=== PATIENT | female | born 1975 | race Two or more races ===

== ENCOUNTER 2019-06-21 11:30 | Inpatient (IN) | payer OTHER ==
[~2019-06-21] VITALS: Ht 160 cm; Wt 70.3 kg
[2019-06-21] MEDS ORDERED: IV NORMAL SALINE 1000ML BAG 1,000 ML IV SCH (12:01)
--- NOTE | 2019-06-21 12:04 | PHYS DOC ---
Adult General Chief Complaint Chief Complaint: ABDOMINAL PAIN HPI HPI Patient is a 44 year old female who presents with his morning awoke with mid epigastric abdominal pain and vomiting. Patient states she vomited 5 times but there is no blood in her vomit. Patient states that her mid back is also hurting. When patient asked what her mid back pain feels like she states that she cannot describe it doesn't know what it feels like. When asked what her abdominal pain feels like she states "it just feels like there something hard sitting in there". Patient rates her pain a 7 out of 10. Review of Systems Review of Systems Constitutional: Denies fever or chills [] Eyes: Denies change in visual acuity, redness, or eye pain [] HENT: Denies nasal congestion or sore throat [] Respiratory: Denies cough or shortness of breath [] Cardiovascular: No additional information not addressed in HPI [] GI: abdominal pain, nausea, vomiting, denies bloody stools or diarrhea [] : Denies dysuria or hematuria [] Musculoskeletal: Denies back pain or joint pain [] Integument: Denies rash or skin lesions [] Neurologic: Denies headache, focal weakness or sensory changes [] Endocrine: Denies polyuria or polydipsia [] All other systems were reviewed and found to be within normal limits, except as documented in this note. Current Medications Current Medications Current Medications Medications (Trade) Dose Ordered Sig/Ro Start Time Stop Time Status Last Admin Dose Admin Acetaminophen (Tylenol) 650 mg PRN Q4HRS PRN 06/21/19 13:45 06/22/19 13:44 Ceftriaxone Sodium (Rocephin) 1 gm 1X ONCE 06/21/19 13:45 06/21/19 13:46 DC 06/21/19 13:38 1 GM Famotidine (Pepcid Vial) 20 mg 1X ONCE 06/21/19 12:15 06/21/19 12:16 DC 06/21/19 12:19 20 MG Fentanyl Citrate (Fentanyl 2ml Vial) 50 mcg PRN Q1HR PRN 06/21/19 13:45 06/22/19 13:44 Ondansetron HCl (Zofran) 4 mg PRN Q8HRS PRN 06/21/19 13:45 06/22/19 13:44 Sodium Chloride 1,000 ml @ 100 mls/hr Q10H 06/21/19 13:35 06/22/19 13:34 Allergies Allergies Allergies Coded Allergies Type Severity Reaction Last Updated Verified No Known Drug Allergies 05/28/19 No Physical Exam Physical Exam Constitutional: Well developed, well nourished, no acute distress, non-toxic appearance. [] HENT: Normocephalic, atraumatic, bilateral external ears normal, oropharynx moist, no oral exudates, nose normal. [] Eyes: PERRLA, EOMI, conjunctiva normal, no discharge. [] Neck: Normal range of motion, no tenderness, supple, no stridor. [] Cardiovascular:Heart rate regular rhythm, no murmur [] Lungs & Thorax: Bilateral breath sounds clear to auscultation [] Abdomen: Bowel sounds normal, soft, epigastric tenderness, no masses, no pulsatile masses. [] Skin: Lower abdomen surgical site is healed and no signs of infection. Warm, dry, no erythema, no rash. [] Back: No tenderness, no CVA tenderness. [] Extremities: No tenderness, no cyanosis, no clubbing, ROM intact, no edema. [] Neurologic: Alert and oriented X 3, normal motor function, normal sensory function, no focal deficits noted. [] Psychologic: Affect normal, judgement normal, mood normal. [] Current Patient Data Vital Signs Vital Signs Date Time Temp Pulse Resp B/P (MAP) Pulse Ox O2 Delivery O2 Flow Rate FiO2 06/21/19 13:08 66 16 121/60 (80) 95 Room Air 06/21/19 11:52 98.0 98.0 Lab Values Laboratory Tests Test 06/21/19 11:50 06/21/19 12:10 Urine Collection Type Unknown Urine Color Yellow Urine Clarity Clear Urine pH 6.5 Urine Specific [place] 1.010 Urine Protein 30 mg/dL (NEG-TRACE) Urine Glucose (UA) Negative mg/dL (NEG) Urine Ketones (Stick) Negative mg/dL (NEG) Urine Blood Trace (NEG) Urine Nitrite Negative (NEG) Urine Bilirubin Negative (NEG) Urine Urobilinogen Dipstick 0.2 mg/dL (0.2 mg/dL) Urine Leukocyte Esterase Large (NEG) Urine RBC 3-5 /HPF (0-2) Urine WBC 11-20 /HPF (0-4) Urine Squamous Epithelial Cells Many /LPF Urine Bacteria Moderate /HPF (0-FEW) Urine Mucus Slight /LPF Urine Opiates Screen Neg (NEG) Urine Methadone Screen Neg (NEG) Urine Barbiturates Neg (NEG) Urine Phencyclidine Screen Neg (NEG) Urine Amphetamine/Methamphetamine Neg (NEG) Urine Benzodiazepines Screen Neg (NEG) Urine Cocaine Screen Neg (NEG) Urine Cannabinoids Screen Neg (NEG) Urine Ethyl Alcohol Neg (NEG) White Blood Count 15.8 x10^3/uL (4.0-11.0) H Red Blood Count 4.04 x10^6/uL (3.50-5.40) Hemoglobin 11.8 g/dL (12.0-15.5) L Hematocrit 35.3 % (36.0-47.0) L Mean Corpuscular Volume 87 fL (79-100) Mean Corpuscular Hemoglobin 29 pg (25-35) Mean Corpuscular Hemoglobin Concent 34 g/dL (31-37) Red Cell Distribution Width 14.3 % (11.5-14.5) Platelet Count 401 x10^3/uL (140-400) H Neutrophils (%) (Auto) 94 % (31-73) H Lymphocytes (%) (Auto) 3 % (24-48) L Monocytes (%) (Auto) 2 % (0-9) Eosinophils (%) (Auto) 0 % (0-3) Basophils (%) (Auto) 0 % (0-3) Neutrophils # (Auto) 14.9 x10^3/uL (1.8-7.7) H Lymphocytes # (Auto) 0.5 x10^3/uL (1.0-4.8) L Monocytes # (Auto) 0.3 x10^3/uL (0.0-1.1) Eosinophils # (Auto) 0.0 x10^3/uL (0.0-0.7) Basophils # (Auto) 0.0 x10^3/uL (0.0-0.2) Segmented Neutrophils % 89 % (35-66) H Band Neutrophils % 7 % (0-9) Lymphocytes % 2 % (24-48) L Monocytes % 2 % (0-10) Platelet Estimate Increased (ADEQUATE) Sodium Level 144 mmol/L (136-145) Potassium Level 4.1 mmol/L (3.5-5.1) Chloride Level 105 mmol/L (98-107) Carbon Dioxide Level 25 mmol/L (21-32) Anion Gap 14 (6-14) Blood Urea Nitrogen 24 mg/dL (7-20) H Creatinine 2.0 mg/dL (0.6-1.0) H Estimated GFR (Cockcroft-Gault) 26.9 BUN/Creatinine Ratio 12 (6-20) Glucose Level 114 mg/dL (70-99) H Lactic Acid Level 2.4 mmol/L (0.4-2.0) H Calcium Level 10.0 mg/dL (8.5-10.1) Total Bilirubin 0.3 mg/dL (0.2-1.0) Aspartate Amino Transferase (AST) 29 U/L (15-37) Alanine Aminotransferase (ALT) 37 U/L (14-59) Alkaline Phosphatase 68 U/L (46-116) Total Protein 7.9 g/dL (6.4-8.2) Albumin 3.9 g/dL (3.4-5.0) Albumin/Globulin Ratio 1.0 (1.0-1.7) Lipase 105 U/L (73-393) Laboratory Tests 06/21/19 12:10 Laboratory Tests 06/21/19 12:10 EKG EKG [] Radiology/Procedures Radiology/Procedures [] Impressions: [facility] [address] [place], [place] [id number] IMAGING REPORT Signed PATIENT: YESSY WEBER ACCOUNT: [id number] : 1975 LOCATION: ER AGE: 44 SEX: F EXAM STATUS: REG ER ORD. PHYSICIAN: NASRIN LEWIS APRN REASON: abd pain, vomiting PROCEDURE: CT ABDOMEN PELVIS WO CONTRAST EXAM: CT Abdomen and Pelvis without IV contrast CLINICAL HISTORY: Abdominal pain, vomiting. COMPARISON: none TECHNIQUE: Helical CT of the abdomen and pelvis without intravenous contrast. Axial, coronal and sagittal reformatted images were generated. PQRS compliance statement - One or more of the following individualized dose reduction techniques were utilized for this study: 1. Automated exposure control 2. Adjustment of the mA and/or kV according to patient size 3. Use of iterative reconstruction technique FINDINGS: Lack of intravenous contrast limits evaluation of solid organs, vasculature, and lymph nodes. Lower chest: Linear opacities in lower lobes likely scarring/atelectasis. Abdomen and Pelvis: No focal liver lesion. Spleen is unremarkable. Adrenal glands are normal. Pancreas is unremarkable. Gallbladder is normal. No biliary ductal dilatation. The kidneys are enlarged bilaterally with associated perinephric fat infiltration. This may be seen with pyelonephritis. No renal tract calculus. No hydronephrosis or hydroureter. Bladder is unremarkable. Large volume colonic stool content is seen. No small or large bowel dilatation. No evidence for bowel obstruction. Appendix is normal. No abdominal or pelvic ascites. No abdominal or pelvic lymphadenopathy. Bones: Sclerotic lesion T10 vertebral body, nonspecific possibly bone island. IMPRESSION: Diffuse bilateral perinephric infiltration with edematous appearance of the kidneys may be seen with pyelonephritis. Electronically signed by: Delroy Birmingham MD (06/21/2019 1:17 PM) [facility] DICTATED and SIGNED BY: DELROY BIRMINGHAM MD DATE: 06/21/19 5639 Course & Med Decision Making Course & Med Decision Making Patient is a 44 year old female who presents with his morning awoke with mid ep igastric abdominal pain and vomiting. Patient states she vomited 5 times but there is no blood in her vomit. Patient states that her mid back is also hurting. When patient asked what her mid back pain feels like she states that she cannot describe it doesn't know what it feels like. When asked what her abdominal pain feels like she states "it just feels like there something hard sitting in there". Patient rates her pain a 7 out of 10. Patient states she is not taking any medications today. Patient states she does not take any medications daily. Patient had a total hysterectomy by Dr. Caro on May 28. Hysterectomy surgical site is healed and there are no signs of infection. Abdomen is tender with palpation to epigastric area but otherwise soft. No external swelling. Lungs are clear to auscultation all lobes. Afebrile and vital signs are stable. Patient denies vaginal discharge, constipation, diarrhea, chest pain, shortness of air, fever, dysuria, weaknesses, dizziness, visual changes. Ambulatory with a steady gait. Speaks in full clear sentences. Mucous membranes are moist. Skin is pink warm and dry. Alert and oriented. Patient has a urinary tract infection with trace hematuria, white blood cell count 15.8, BUN 24, creatinine 2.0. She does not have a history of kidney problems. CT abdomen pelvis shows Diffuse bilateral perinephric infiltration with edematous appearance of the kidneys may be seen with pyelonephritis. Patient admitted for pyelonephritis by Dr. Vázquez. Yunier Disclaimer Jobyon Disclaimer This electronic medical record was generated, in whole or in part, using a voice recognition dictation system. Departure Departure Impression: Primary Impression: Pyelonephritis Disposition: ADMITTED INPATIENT Admitting Physician: TRINY Condition: STABLE Referrals: ROHAN CARO MD (PCP) NASRIN LEWIS [employer] Jun 21, 2019 12:04
[2019-06-21 12:11] LABS: BILIRUBIN,URINE NEGATIVE (NEG); CLARITY,URINE CLEAR; COLOR,URINE YELLOW; NITRITE,URINE NEGATIVE (NEG); PH,URINE 6.5; PROTEIN,URINE 30 mg/dL (NEG-TRACE); UROBILINOGEN,URINE 0.2 mg/dL (0.2 mg/dL)
[2019-06-21] MEDS ORDERED: ONDANSETRON PF 4 MG/2 ML VIAL. IV ONE (12:15)
[2019-06-21] MEDS ORDERED: fentaNYL PF VIAL 100 MCG/2 ML VIAL IV ONE (12:15)
[2019-06-21] MEDS ORDERED: FAMOTIDINE 20 MG/2 ML VIAL IVP ONE (12:15)
[2019-06-21 12:19] LABS: BARBITURATES NEG (NEG); BENZODIAZEPINES NEG (NEG); CANNABINOIDS NEG (NEG); COCAINE NEG (NEG); METHADONE NEG (NEG); OPIATES NEG (NEG); PHENCYCLIDINE NEG (NEG)
[2019-06-21 12:20] LABS: AMPHETAMINE/METHAMPHETAMINE NEG (NEG)
[2019-06-21 12:27] LABS: SQUAMOUS EPITHELIAL CELL,UR MANY /LPF
[2019-06-21 12:28] LABS: BACTERIA,URINE MODERATE /HPF (0-FEW)
[2019-06-21 12:33] LABS: BASO % 0 % (0-3); EOS % 0 % (0-3); HEMATOCRIT 35.3 % (36.0-47.0); HEMOGLOBIN 11.8 g/dL (12.0-15.5); LYMPH # 0.5 x10^3/uL (1.0-4.8); LYMPH % 3 % (24-48); MEAN CORPUSCULAR HEMOGLOBIN 29 pg (25-35); MEAN CORPUSCULAR HGB CONC 34 g/dL (31-37); MEAN CORPUSCULAR VOLUME 87 fL (79-100); MONO # 0.3 x10^3/uL (0.0-1.1); MONO % 2 % (0-9); NEUT # 14.9 x10^3/uL (1.8-7.7); NEUT % 94 % (31-73); PLATELET COUNT 401 x10^3/uL (140-400); RED BLOOD COUNT 4.04 x10^6/uL (3.50-5.40); RED CELL DISTRIBUTION WIDTH 14.3 % (11.5-14.5); WHITE BLOOD COUNT 15.8 x10^3/uL (4.0-11.0)
[2019-06-21 12:41] LABS: GFR 26.9; POTASSIUM 4.1 mmol/L (3.5-5.1)
[2019-06-21 12:49] LABS: ALBUMIN 3.9 g/dL (3.4-5.0); TOTAL BILIRUBIN 0.3 mg/dL (0.2-1.0); TOTAL PROTEIN 7.9 g/dL (6.4-8.2)
[2019-06-21 12:58] LABS: % LYMPHS 2 % (24-48); % MONOS 2 % (0-10)
[2019-06-21 12:59] LABS: % BANDS 7 % (0-9); % SEGS 89 % (35-66)
[2019-06-21 13:00] LABS: PLT ESTIMATE INCREASED (ADEQUATE)
[2019-06-21] MEDS ORDERED: IV NORMAL SALINE 1000ML BAG 1,000 ML IV ONE (13:00)
--- NOTE | 2019-06-21 13:20 | RAD ---
EXAM: CT Abdomen and Pelvis without IV contrast CLINICAL HISTORY: Abdominal pain, vomiting. COMPARISON: none TECHNIQUE: Helical CT of the abdomen and pelvis without intravenous contrast. Axial, coronal and sagittal reformatted images were generated. PQRS compliance statement - One or more of the following individualized dose reduction techniques were utilized for this study: 1. Automated exposure control 2. Adjustment of the mA and/or kV according to patient size 3. Use of iterative reconstruction technique FINDINGS: Lack of intravenous contrast limits evaluation of solid organs, vasculature, and lymph nodes. Lower chest: Linear opacities in lower lobes likely scarring/atelectasis. Abdomen and Pelvis: No focal liver lesion. Spleen is unremarkable. Adrenal glands are normal. Pancreas is unremarkable. Gallbladder is normal. No biliary ductal dilatation. The kidneys are enlarged bilaterally with associated perinephric fat infiltration. This may be seen with pyelonephritis. No renal tract calculus. No hydronephrosis or hydroureter. Bladder is unremarkable. Large volume colonic stool content is seen. No small or large bowel dilatation. No evidence for bowel obstruction. Appendix is normal. No abdominal or pelvic ascites. No abdominal or pelvic lymphadenopathy. Bones: Sclerotic lesion T10 vertebral body, nonspecific possibly bone island. IMPRESSION: Diffuse bilateral perinephric infiltration with edematous appearance of the kidneys may be seen with pyelonephritis. Electronically signed by: Delroy Cm MD (06/21/2019 1:17 PM) [facility]
[2019-06-21] MEDS ORDERED: ACETAMINOPHEN 325 MG TABLET. PO PRN (13:45)
[2019-06-21] MEDS ORDERED: cefTRIAXone IV Push 1 GM VIAL. IVP ONE (13:45)
[2019-06-21] MEDS ORDERED: ONDANSETRON PF 4 MG/2 ML VIAL. IV PRN (13:45)
[2019-06-21] MEDS: fentaNYL PF VIAL 100 MCG/2 ML VIAL IV PRN ×2 (14:00→19:52)
[2019-06-21 14:51] VITALS: BP 131/78
[2019-06-21] MEDS ORDERED: IBUP200T44 PO (15:26)
[2019-06-21] MEDS ORDERED: OXYC1TAB15 PO (15:26)
[2019-06-21] MEDS ORDERED: PIP/TAZO PER PHARMACY MC PRN (15:45)
[2019-06-21] MEDS ORDERED: MORPHINE SULFATE 2 MG/ML VIAL. IV PRN (15:45)
[2019-06-21] MEDS: IV NORMAL SALINE 1000ML BAG 1,000 ML IV SCH ×2 (15:58→23:35)
[2019-06-21] MEDS: PROCHLORPERAZINE 10 MG/2 ML VIAL. IV PRN (15:58)
[2019-06-21] MEDS: PIPERACILLIN/TAZOBACTAM 2.25 GM in IV NORMAL SALINE 50ML 50 ML IV SCH (17:38)
[2019-06-21 19:07] VITALS: BP 106/60
--- NOTE | 2019-06-21 21:57 | HP ---
ADMIT DATE: 06/21/2019 CHIEF COMPLAINT: Abdominal pain. HISTORY OF PRESENT ILLNESS: The patient is a pleasant 44-year-old female who presented to the ER with abdominal pain, rates it a 7/10. She has associated nausea. We did some labs and appear her urine is showing a UTI. She has a large amount of leukocyte esterase and 11-20 white cells. She also has a white count of 16,000. We are going to admit the patient and give her IV antibiotics and fluids. It should be noted that she had hysterectomy a few weeks ago by Dr. Caro. We are also going to consult him for routine followup. PAST MEDICAL HISTORY: Recent hysterectomy. ALLERGIES: None. FAMILY HISTORY: Hypertension. SOCIAL HISTORY: She does not drink, smoke or take drugs. She is to her Jack for many years. MEDICATIONS: Reviewed, please refer to the MRAD. REVIEW OF SYSTEMS: GENERAL: No history of weight change, weakness or fevers. SKIN: No bruising, hair changes or rashes. EYES: No blurred, double or loss of vision. NOSE AND THROAT: No history of nosebleeds, hoarseness or sore throat. HEART: No history of palpitations, chest pain or shortness of breath on exertion. LUNGS: Denies cough, hemoptysis, wheezing or shortness of breath. GASTROINTESTINAL: She complains of abdominal pain. GENITOURINARY: No history of frequency, urgency, hesitancy or nocturia. NEUROLOGIC: Denies history of numbness, tingling, tremor or weakness. PSYCHIATRIC: No history of panic, anxiety or depression. ENDOCRINE: No history of heat or cold intolerance, polyuria or polydipsia. EXTREMITIES: Denies muscle weakness, joint pain, pain on walking or stiffness. PHYSICAL EXAMINATION: VITALS: Within normal limits and are stable. GENERAL: No apparent distress. Alert and oriented. HEENT: Head is normocephalic, atraumatic, pupils were equally round and reactive to light and accommodation. NECK: Supple, no JVD, no thyromegaly was noted. LUNGS: Clear to auscultation in all lung balderas without rhonchi or wheezing. HEART: RRR, S1, S2 present. Peripheral pulses intact, no obvious murmurs were noted. ABDOMEN: Soft, nontender. Positive bowel sounds no organomegaly, normal bowel sounds. EXTREMITIES: Without any cyanosis, clubbing, or edema. Pedal pulses intact, Homans sign is negative. NEUROLOGIC: Normal speech, normal tone. A & O x3, moves all extremities, no obvious focal deficits. PSYCHIATRIC: Normal affect, normal mood. Stable. SKIN: No ulcerations or rashes, good skin turgor, no jaundice. VASCULAR: Good capillary refill, neurovascular bundle appears to be intact. LABORATORY DATA: White count is 16. ASSESSMENT AND PLAN: Urinary tract infection with probable pyelonephritis azotemia and dehydration in a middle-aged female who also had a recent hysterectomy. The patient has been admitted. We will give her IV fluids, IV antibiotics. Consult Nephrology. Consult COMMERCIAL PHOTOGRAPHER. Check a sed rate because she complains of shoulder and hip pain. Frequent labs, PT, OT. Full code. Deep venous thrombosis prophylaxis. ROSALINDA DAWSON DO DR: BIBIANA/jose JOB#: [id number] / [id number]
[2019-06-21 22:45] VITALS: BP 106/60
[2019-06-22] MEDS: IV NORMAL SALINE 1000ML BAG 1,000 ML IV SCH ×3 (01:27→18:15)
[2019-06-22] MEDS: PIPERACILLIN/TAZOBACTAM 2.25 GM in IV NORMAL SALINE 50ML 50 ML IV SCH ×5 (01:27→23:42)
[2019-06-22 03:27] VITALS: BP 103/54
[2019-06-22 07:00] VITALS: BP 116/57
--- NOTE | 2019-06-22 10:45 | PDOC ---
PROGRESS NOTES Chief Complaint Chief Complaint Urinary tract infection pyelonephritis azotemia acute renal failure, vasomotor History of Present Illness History of Present Illness some nausea, has poor PO intake, start clears, advance as able on zosyn, feels much better Vitals Vitals Vital Signs Date Time Temp Pulse Resp B/P (MAP) Pulse Ox O2 Delivery O2 Flow Rate FiO2 06/22/19 07:52 Room Air 06/22/19 07:00 97.3 56 16 116/57 (76) 99 97.3 Physical Exam General: Alert, Oriented X3, Cooperative, No acute distress Heart: Normal S1 Lungs: Clear Abdomen: Normal bowel sounds Extremities: No clubbing Labs LABS Laboratory Tests Test 06/21/19 11:50 06/21/19 12:10 06/21/19 19:00 06/22/19 04:00 Urine Collection Type Unknown Urine Color Yellow Urine Clarity Clear Urine pH 6.5 Urine Specific [place] 1.010 Urine Protein 30 mg/dL (NEG-TRACE) Urine Glucose (UA) Negative mg/dL (NEG) Urine Ketones (Stick) Negative mg/dL (NEG) Urine Blood Trace (NEG) Urine Nitrite Negative (NEG) Urine Bilirubin Negative (NEG) Urine Urobilinogen Dipstick 0.2 mg/dL (0.2 mg/dL) Urine Leukocyte Esterase Large (NEG) Urine RBC 3-5 /HPF (0-2) Urine WBC 11-20 /HPF (0-4) Urine Squamous Epithelial Cells Many /LPF Urine Bacteria Moderate /HPF (0-FEW) Urine Mucus Slight /LPF Urine Opiates Screen Neg (NEG) Urine Methadone Screen Neg (NEG) Urine Barbiturates Neg (NEG) Urine Phencyclidine Screen Neg (NEG) Urine Amphetamine/Methamphetamine Neg (NEG) Urine Benzodiazepines Screen Neg (NEG) Urine Cocaine Screen Neg (NEG) Urine Cannabinoids Screen Neg (NEG) Urine Ethyl Alcohol Neg (NEG) White Blood Count 15.8 x10^3/uL (4.0-11.0) Red Blood Count 4.04 x10^6/uL (3.50-5.40) Hemoglobin 11.8 g/dL (12.0-15.5) Hematocrit 35.3 % (36.0-47.0) Mean Corpuscular Volume 87 fL (79-100) Mean Corpuscular Hemoglobin 29 pg (25-35) Mean Corpuscular Hemoglobin Concent 34 g/dL (31-37) Red Cell Distribution Width 14.3 % (11.5-14.5) Platelet Count 401 x10^3/uL (140-400) Neutrophils (%) (Auto) 94 % (31-73) Lymphocytes (%) (Auto) 3 % (24-48) Monocytes (%) (Auto) 2 % (0-9) Eosinophils (%) (Auto) 0 % (0-3) Basophils (%) (Auto) 0 % (0-3) Neutrophils # (Auto) 14.9 x10^3/uL (1.8-7.7) Lymphocytes # (Auto) 0.5 x10^3/uL (1.0-4.8) Monocytes # (Auto) 0.3 x10^3/uL (0.0-1.1) Eosinophils # (Auto) 0.0 x10^3/uL (0.0-0.7) Basophils # (Auto) 0.0 x10^3/uL (0.0-0.2) Segmented Neutrophils % 89 % (35-66) Band Neutrophils % 7 % (0-9) Lymphocytes % 2 % (24-48) Monocytes % 2 % (0-10) Platelet Estimate Increased (ADEQUATE) Sodium Level 144 mmol/L (136-145) Potassium Level 4.1 mmol/L (3.5-5.1) Chloride Level 105 mmol/L (98-107) Carbon Dioxide Level 25 mmol/L (21-32) Anion Gap 14 (6-14) Blood Urea Nitrogen 24 mg/dL (7-20) Creatinine 2.0 mg/dL (0.6-1.0) Estimated GFR (Cockcroft-Gault) 26.9 BUN/Creatinine Ratio 12 (6-20) Glucose Level 114 mg/dL (70-99) Lactic Acid Level 2.4 mmol/L (0.4-2.0) 1.3 mmol/L (0.4-2.0) Calcium Level 10.0 mg/dL (8.5-10.1) Total Bilirubin 0.3 mg/dL (0.2-1.0) Aspartate Amino Transf (AST/SGOT) 29 U/L (15-37) Alanine Aminotransferase (ALT/SGPT) 37 U/L (14-59) Alkaline Phosphatase 68 U/L (46-116) Total Protein 7.9 g/dL (6.4-8.2) Albumin 3.9 g/dL (3.4-5.0) Albumin/Globulin Ratio 1.0 (1.0-1.7) Lipase 105 U/L (73-393) Erythrocyte Sedimentation Rate 26 (0-25) Assessment and Plan Assessmemt and Plan Problems Medical Problems: (1) Pyelonephritis Status: Acute Comment Review of Relevant I have reviewed the following items ailyn (where applicable) has been applied. Labs Laboratory Tests Test 06/21/19 11:50 06/21/19 12:10 06/21/19 19:00 06/22/19 04:00 Urine Collection Type Unknown Urine Color Yellow Urine Clarity Clear Urine pH 6.5 Urine Specific [place] 1.010 Urine Protein 30 mg/dL (NEG-TRACE) Urine Glucose (UA) Negative mg/dL (NEG) Urine Ketones (Stick) Negative mg/dL (NEG) Urine Blood Trace (NEG) Urine Nitrite Negative (NEG) Urine Bilirubin Negative (NEG) Urine Urobilinogen Dipstick 0.2 mg/dL (0.2 mg/dL) Urine Leukocyte Esterase Large (NEG) Urine RBC 3-5 /HPF (0-2) Urine WBC 11-20 /HPF (0-4) Urine Squamous Epithelial Cells Many /LPF Urine Bacteria Moderate /HPF (0-FEW) Urine Mucus Slight /LPF Urine Opiates Screen Neg (NEG) Urine Methadone Screen Neg (NEG) Urine Barbiturates Neg (NEG) Urine Phencyclidine Screen Neg (NEG) Urine Amphetamine/Methamphetamine Neg (NEG) Urine Benzodiazepines Screen Neg (NEG) Urine Cocaine Screen Neg (NEG) Urine Cannabinoids Screen Neg (NEG) Urine Ethyl Alcohol Neg (NEG) White Blood Count 15.8 x10^3/uL (4.0-11.0) Red Blood Count 4.04 x10^6/uL (3.50-5.40) Hemoglobin 11.8 g/dL (12.0-15.5) Hematocrit 35.3 % (36.0-47.0) Mean Corpuscular Volume 87 fL (79-100) Mean Corpuscular Hemoglobin 29 pg (25-35) Mean Corpuscular Hemoglobin Concent 34 g/dL (31-37) Red Cell Distribution Width 14.3 % (11.5-14.5) Platelet Count 401 x10^3/uL (140-400) Neutrophils (%) (Auto) 94 % (31-73) Lymphocytes (%) (Auto) 3 % (24-48) Monocytes (%) (Auto) 2 % (0-9) Eosinophils (%) (Auto) 0 % (0-3) Basophils (%) (Auto) 0 % (0-3) Neutrophils # (Auto) 14.9 x10^3/uL (1.8-7.7) Lymphocytes # (Auto) 0.5 x10^3/uL (1.0-4.8) Monocytes # (Auto) 0.3 x10^3/uL (0.0-1.1) Eosinophils # (Auto) 0.0 x10^3/uL (0.0-0.7) Basophils # (Auto) 0.0 x10^3/uL (0.0-0.2) Segmented Neutrophils % 89 % (35-66) Band Neutrophils % 7 % (0-9) Lymphocytes % 2 % (24-48) Monocytes % 2 % (0-10) Platelet Estimate Increased (ADEQUATE) Sodium Level 144 mmol/L (136-145) Potassium Level 4.1 mmol/L (3.5-5.1) Chloride Level 105 mmol/L (98-107) Carbon Dioxide Level 25 mmol/L (21-32) Anion Gap 14 (6-14) Blood Urea Nitrogen 24 mg/dL (7-20) Creatinine 2.0 mg/dL (0.6-1.0) Estimated GFR (Cockcroft-Gault) 26.9 BUN/Creatinine Ratio 12 (6-20) Glucose Level 114 mg/dL (70-99) Lactic Acid Level 2.4 mmol/L (0.4-2.0) 1.3 mmol/L (0.4-2.0) Calcium Level 10.0 mg/dL (8.5-10.1) Total Bilirubin 0.3 mg/dL (0.2-1.0) Aspartate Amino Transf (AST/SGOT) 29 U/L (15-37) Alanine Aminotransferase (ALT/SGPT) 37 U/L (14-59) Alkaline Phosphatase 68 U/L (46-116) Total Protein 7.9 g/dL (6.4-8.2) Albumin 3.9 g/dL (3.4-5.0) Albumin/Globulin Ratio 1.0 (1.0-1.7) Lipase 105 U/L (73-393) Erythrocyte Sedimentation Rate 26 (0-25) Laboratory Tests Test 06/21/19 11:50 06/21/19 12:10 06/21/19 19:00 06/22/19 04:00 Urine Collection Type Unknown Urine Color Yellow Urine Clarity Clear Urine pH 6.5 Urine Specific [place] 1.010 Urine Protein 30 mg/dL (NEG-TRACE) Urine Glucose (UA) Negative mg/dL (NEG) Urine Ketones (Stick) Negative mg/dL (NEG) Urine Blood Trace (NEG) Urine Nitrite Negative (NEG) Urine Bilirubin Negative (NEG) Urine Urobilinogen Dipstick 0.2 mg/dL (0.2 mg/dL) Urine Leukocyte Esterase Large (NEG) Urine RBC 3-5 /HPF (0-2) Urine WBC 11-20 /HPF (0-4) Urine Squamous Epithelial Cells Many /LPF Urine Bacteria Moderate /HPF (0-FEW) Urine Mucus Slight /LPF Urine Opiates Screen Neg (NEG) Urine Methadone Screen Neg (NEG) Urine Barbiturates Neg (NEG) Urine Phencyclidine Screen Neg (NEG) Urine Amphetamine/Methamphetamine Neg (NEG) Urine Benzodiazepines Screen Neg (NEG) Urine Cocaine Screen Neg (NEG) Urine Cannabinoids Screen Neg (NEG) Urine Ethyl Alcohol Neg (NEG) White Blood Count 15.8 x10^3/uL (4.0-11.0) Red Blood Count 4.04 x10^6/uL (3.50-5.40) Hemoglobin 11.8 g/dL (12.0-15.5) Hematocrit 35.3 % (36.0-47.0) Mean Corpuscular Volume 87 fL (79-100) Mean Corpuscular Hemoglobin 29 pg (25-35) Mean Corpuscular Hemoglobin Concent 34 g/dL (31-37) Red Cell Distribution Width 14.3 % (11.5-14.5) Platelet Count 401 x10^3/uL (140-400) Neutrophils (%) (Auto) 94 % (31-73) Lymphocytes (%) (Auto) 3 % (24-48) Monocytes (%) (Auto) 2 % (0-9) Eosinophils (%) (Auto) 0 % (0-3) Basophils (%) (Auto) 0 % (0-3) Neutrophils # (Auto) 14.9 x10^3/uL (1.8-7.7) Lymphocytes # (Auto) 0.5 x10^3/uL (1.0-4.8) Monocytes # (Auto) 0.3 x10^3/uL (0.0-1.1) Eosinophils # (Auto) 0.0 x10^3/uL (0.0-0.7) Basophils # (Auto) 0.0 x10^3/uL (0.0-0.2) Segmented Neutrophils % 89 % (35-66) Band Neutrophils % 7 % (0-9) Lymphocytes % 2 % (24-48) Monocytes % 2 % (0-10) Platelet Estimate Increased (ADEQUATE) Sodium Level 144 mmol/L (136-145) Potassium Level 4.1 mmol/L (3.5-5.1) Chloride Level 105 mmol/L (98-107) Carbon Dioxide Level 25 mmol/L (21-32) Anion Gap 14 (6-14) Blood Urea Nitrogen 24 mg/dL (7-20) Creatinine 2.0 mg/dL (0.6-1.0) Estimated GFR (Cockcroft-Gault) 26.9 BUN/Creatinine Ratio 12 (6-20) Glucose Level 114 mg/dL (70-99) Lactic Acid Level 2.4 mmol/L (0.4-2.0) 1.3 mmol/L (0.4-2.0) Calcium Level 10.0 mg/dL (8.5-10.1) Total Bilirubin 0.3 mg/dL (0.2-1.0) Aspartate Amino Transf (AST/SGOT) 29 U/L (15-37) Alanine Aminotransferase (ALT/SGPT) 37 U/L (14-59) Alkaline Phosphatase 68 U/L (46-116) Total Protein 7.9 g/dL (6.4-8.2) Albumin 3.9 g/dL (3.4-5.0) Albumin/Globulin Ratio 1.0 (1.0-1.7) Lipase 105 U/L (73-393) Erythrocyte Sedimentation Rate 26 (0-25) Medications Current Medications Sodium Chloride 1,000 ml @ 1,000 mls/hr Q1H IV Last administered on 06/21/19at 12:19; Start 06/21/19 at 12:01; Stop 06/21/19 at 13:00; Status DC Fentanyl Citrate (Fentanyl 2ml Vial) 50 mcg 1X ONCE IV Last administered on 06/21/19at 12:19; Start 06/21/19 at 12:15; Stop 06/21/19 at 12:16; Status DC Ondansetron HCl (Zofran) 4 mg 1X ONCE IV Last administered on 06/21/19at 12:19; Start 06/21/19 at 12:15; Stop 06/21/19 at 12:16; Status DC Famotidine (Pepcid Vial) 20 mg 1X ONCE IVP Last administered on 06/21/19at 12:19; Start 06/21/19 at 12:15; Stop 06/21/19 at 12:16; Status DC Sodium Chloride 1,000 ml @ 1,000 mls/hr 1X ONCE IV Last administered on 06/21/19at 13:06; Start 06/21/19 at 13:00; Stop 06/21/19 at 13:59; Status DC Ceftriaxone Sodium (Rocephin) 1 gm 1X ONCE IVP Last administered on 06/21/19at 13:38; Start 06/21/19 at 13:45; Stop 06/21/19 at 13:46; Status DC Ondansetron HCl (Zofran) 4 mg PRN Q8HRS PRN IV NAUSEA/VOMITING Last administered on 06/21/19at 14:26; Start 06/21/19 at 13:45; Stop 06/22/19 at 13:44 Fentanyl Citrate (Fentanyl 2ml Vial) 50 mcg PRN Q1HR PRN IV PAIN Last administered on 06/21/19at 19:52; Start 06/21/19 at 13:45; Stop 06/22/19 at 13:44 Sodium Chloride 1,000 ml @ 100 mls/hr Q10H IV Last administered on 06/21/19at 15:58; Start 06/21/19 at 13:35; Stop 06/21/19 at 23:45; Status DC Acetaminophen (Tylenol) 650 mg PRN Q4HRS PRN PO FEVER; Start 06/21/19 at 13:45; Stop 06/22/19 at 13:44 Prochlorperazine Edisylate (Compazine) 10 mg PRN Q6HRS PRN IV NAUSEA/VOMITING Last administered on 06/21/19at 15:58; Start 06/21/19 at 15:45 Morphine Sulfate (Morphine Sulfate) 2 mg PRN Q2HR PRN IV PAIN Last administered on 06/21/19at 16:39; Start 06/21/19 at 15:45 Piperacillin Sod/ Tazobactam Sod (Zosyn Per Pharmacy) 1 each PRN DAILY PRN MC SEE COMMENTS; Start 06/21/19 at 15:45 Piperacillin Sod/ Tazobactam Sod 2.25 gm/Sodium Chloride 50 ml @ 100 mls/hr Q6HRS IV Last administered on 06/22/19at 06:08; Start 06/21/19 at 18:00 Sodium Chloride 1,000 ml @ 125 mls/hr Q8H IV Last administered on 06/22/19at 01:27; Start 06/21/19 at 21:30 Active Scripts Active Reported Motrin Ib (Ibuprofen) 200 Mg Tablet 800 Mg PO BID PRN Percocet 5-325 Mg Tablet (Oxycodone/Acetaminophen) 1 Each Tablet 2 Tab PO PRN Q6HRS PRN Percocet 5-325 Mg Tablet (Oxycodone/Acetaminophen) 1 Each Tablet 1 Tab PO PRN Q6HRS PRN No Known Medications Prior To Admisstion (Info) Each 1 Each MC 1X Vitals/I & O Vital Sign - Last 24 Hours 06/21/19 06/21/19 06/21/19 06/21/19 11:52 12:19 12:47 13:08 Temp 98.0 98.0 Pulse 75 66 Resp 18 16 16 16 B/P (MAP) 152/65 (94) 121/60 (80) Pulse Ox 100 95 O2 Delivery Room Air Room Air 06/21/19 06/21/19 06/21/19 06/21/19 13:38 14:08 14:25 14:51 Temp 98.4 98.4 Pulse 70 74 65 Resp 16 16 20 B/P (MAP) 131/72 (91) 137/63 (87) 131/78 (95) Pulse Ox 96 99 O2 Delivery Room Air 8/17/19 06/21/19 06/21/19 06/21/19 14:54 16:00 16:39 17:17 Resp 18 Pulse Ox 99 99 99 O2 Delivery Room Air Room Air Room Air 06/21/19 06/21/19 06/21/19 06/21/19 19:07 20:21 21:23 22:45 Temp 98.2 98.5 98.2 98.5 Pulse 69 78 Resp 16 16 B/P (MAP) 106/60 (75) 106/60 (75) Pulse Ox 97 95 O2 Delivery Room Air Room Air Room Air Room Air 06/22/19 06/22/19 06/22/19 03:27 07:00 07:52 Temp 98.3 97.3 98.3 97.3 Pulse 68 56 Resp 16 16 B/P (MAP) 103/54 (70) 116/57 (76) Pulse Ox 96 99 O2 Delivery Room Air Room Air Room Air Intake and Output 06/21/19 06/21/19 06/22/19 14:59 22:59 06:59 Intake Total 2000 ml 425 ml Balance 2000 ml 425 ml JOSE THOMAS MD Jun 22, 2019 10:45
[2019-06-22 10:57] LABS: CREATININE 2.1 mg/dL (0.6-1.0); GFR 25.5; POTASSIUM 3.9 mmol/L (3.5-5.1)
[2019-06-22 11:00] VITALS: BP 108/59
--- NOTE | 2019-06-22 11:56 | PDOC2 ---
CONSULT Date of Consult Date of Consult DATE: 06/22/19 TIME: 11:51 Reason for Consult Reason for Consult: KESHA Referring Physician Referring Physician: EUNICE Identification/Chief Complaint Chief Complaint ABD PAIN Source Source: Chart review, Patient History of Present Illness Reason for Visit: THIS IS A 44 YR OLD WITH ABD PAIN AND N/V SINCE YESTERDAY. ALSO MILD BACK PAIN AND ABD PAIN. NO SUCH HX BEFORE. ? DYSURIA. CR OF 2.0. UA POS FOR UTI AND IMAGING SHOWED BILATERAL PERINEPHRIC EDEMA. NO NEPHROTOXINS OR HX REPORTED. DID TAKE COUPLE MOTRIN YESTERDAY Past Medical History Past Medical History NONE Past Surgical History Past Surgical History: Hysterectomy Family History Family History: Hypertension Social History No ALCOHOL: none Drugs: None Lives: with Family Current Problem List Problem List Problems Medical Problems: (1) Pyelonephritis Status: Acute Current Medications Current Medications Current Medications Sodium Chloride 1,000 ml @ 1,000 mls/hr Q1H IV Last administered on 06/21/19at 12:19; Start 06/21/19 at 12:01; Stop 06/21/19 at 13:00; Status DC Fentanyl Citrate (Fentanyl 2ml Vial) 50 mcg 1X ONCE IV Last administered on 06/21/19at 12:19; Start 06/21/19 at 12:15; Stop 06/21/19 at 12:16; Status DC Ondansetron HCl (Zofran) 4 mg 1X ONCE IV Last administered on 06/21/19at 12:19; Start 06/21/19 at 12:15; Stop 06/21/19 at 12:16; Status DC Famotidine (Pepcid Vial) 20 mg 1X ONCE IVP Last administered on 06/21/19at 12:19; Start 06/21/19 at 12:15; Stop 06/21/19 at 12:16; Status DC Sodium Chloride 1,000 ml @ 1,000 mls/hr 1X ONCE IV Last administered on 06/21/19at 13:06; Start 06/21/19 at 13:00; Stop 06/21/19 at 13:59; Status DC Ceftriaxone Sodium (Rocephin) 1 gm 1X ONCE IVP Last administered on 06/21/19at 13:38; Start 06/21/19 at 13:45; Stop 06/21/19 at 13:46; Status DC Ondansetron HCl (Zofran) 4 mg PRN Q8HRS PRN IV NAUSEA/VOMITING Last administered on 06/21/19at 14:26; Start 06/21/19 at 13:45; Stop 06/22/19 at 13:44 Fentanyl Citrate (Fentanyl 2ml Vial) 50 mcg PRN Q1HR PRN IV PAIN Last administered on 06/21/19 19:52; Start 06/21/19 at 13:45; Stop 06/22/19 at 13:44 Sodium Chloride 1,000 ml @ 100 mls/hr Q10H IV Last administered on 06/21/19at 15:58; Start 06/21/19 at 13:35; Stop 06/21/19 at 23:45; Status DC Acetaminophen (Tylenol) 650 mg PRN Q4HRS PRN PO FEVER; Start 06/21/19 at 13:45; Stop 06/22/19 at 13:44 Prochlorperazine Edisylate (Compazine) 10 mg PRN Q6HRS PRN IV NAUSEA/VOMITING Last administered on 06/21/19at 15:58; Start 06/21/19 at 15:45 Morphine Sulfate (Morphine Sulfate) 2 mg PRN Q2HR PRN IV PAIN Last administered on 06/21/19at 16:39; Start 06/21/19 at 15:45 Piperacillin Sod/ Tazobactam Sod (Zosyn Per Pharmacy) 1 each PRN DAILY PRN MC SEE COMMENTS; Start 06/21/19 at 15:45 Piperacillin Sod/ Tazobactam Sod 2.25 gm/Sodium Chloride 50 ml @ 100 mls/hr Q6HRS IV Last administered on 06/22/19at 11:09; Start 06/21/19 at 18:00 Sodium Chloride 1,000 ml @ 125 mls/hr Q8H IV Last administered on 06/22/19at 11:09; Start 06/21/19 at 21:30 Active Scripts Active Reported Motrin Ib (Ibuprofen) 200 Mg Tablet 800 Mg PO BID PRN Percocet 5-325 Mg Tablet (Oxycodone/Acetaminophen) 1 Each Tablet 2 Tab PO PRN Q6HRS PRN Percocet 5-325 Mg Tablet (Oxycodone/Acetaminophen) 1 Each Tablet 1 Tab PO PRN Q6HRS PRN No Known Medications Prior To Admisstion (Info) Each 1 Each 1X Allergies Allergies: Coded Allergies: No Known Drug Allergies (Unverified , 05/28/19) ROS General: YES: Fatigue, Malaise, Appetite PSYCHOLOGICAL ROS: YES: Anxiety Eyes: Yes Decreased vision HEENT: YES: Heacaches ALLERGY AND IMMUNOLOGY: YES: Seasonal Allergies Respiratory: YES: Cough Gastrointestinal: Yes Nausea, Yes Vomiting, Yes Abdominal Pain Genitourinary: YES Dysuria Musculoskeletal: Yes Muscular Weakness Neurological: Yes Weakness Skin: Yes Dry Skin Physical Exam General: Alert, Oriented X3, Cooperative, No acute distress HEENT: Atraumatic, PERRLA, EOMI, Mucous membr. moist/pink Lungs: Clear to auscultation, Normal air movement Heart: Regular rate, Normal S1, Normal S2, No murmurs Abdomen: Normal bowel sounds, Soft, Other (POS FLANK PAIN ON PERCUSSION) Extremities: No clubbing, No cyanosis Skin: No breakdown Neuro: Normal speech, Cranial nerves 3-12 NL Psych/Mental Status: Mental status NL, Mood NL MUSCULOSKELETAL: No joint tenderness, No deformity Vitals VITALS Vital Signs Date Time Temp Pulse Resp B/P (MAP) Pulse Ox O2 Delivery O2 Flow Rate FiO2 06/22/19 11:00 98.1 66 16 108/59 (75) 100 Room Air 98.1 Labs Labs Laboratory Tests Test 06/21/19 11:50 06/21/19 12:10 06/21/19 19:00 06/22/19 04:00 Urine Collection Type Unknown Urine Color Yellow Urine Clarity Clear Urine pH 6.5 Urine Specific [place] 1.010 Urine Protein 30 mg/dL (NEG-TRACE) Urine Glucose (UA) Negative mg/dL (NEG) Urine Ketones (Stick) Negative mg/dL (NEG) Urine Blood Trace (NEG) Urine Nitrite Negative (NEG) Urine Bilirubin Negative (NEG) Urine Urobilinogen Dipstick 0.2 mg/dL (0.2 mg/dL) Urine Leukocyte Esterase Large (NEG) Urine RBC 3-5 /HPF (0-2) Urine WBC 11-20 /HPF (0-4) Urine Squamous Epithelial Cells Many /LPF Urine Bacteria Moderate /HPF (0-FEW) Urine Mucus Slight /LPF Urine Opiates Screen Neg (NEG) Urine Methadone Screen Neg (NEG) Urine Barbiturates Neg (NEG) Urine Phencyclidine Screen Neg (NEG) Urine Amphetamine/Methamphetamine Neg (NEG) Urine Benzodiazepines Screen Neg (NEG) Urine Cocaine Screen Neg (NEG) Urine Cannabinoids Screen Neg (NEG) Urine Ethyl Alcohol Neg (NEG) White Blood Count 15.8 x10^3/uL (4.0-11.0) Red Blood Count 4.04 x10^6/uL (3.50-5.40) Hemoglobin 11.8 g/dL (12.0-15.5) Hematocrit 35.3 % (36.0-47.0) Mean Corpuscular Volume 87 fL (79-100) Mean Corpuscular Hemoglobin 29 pg (25-35) Mean Corpuscular Hemoglobin Concent 34 g/dL (31-37) Red Cell Distribution Width 14.3 % (11.5-14.5) Platelet Count 401 x10^3/uL (140-400) Neutrophils (%) (Auto) 94 % (31-73) Lymphocytes (%) (Auto) 3 % (24-48) Monocytes (%) (Auto) 2 % (0-9) Eosinophils (%) (Auto) 0 % (0-3) Basophils (%) (Auto) 0 % (0-3) Neutrophils # (Auto) 14.9 x10^3/uL (1.8-7.7) Lymphocytes # (Auto) 0.5 x10^3/uL (1.0-4.8) Monocytes # (Auto) 0.3 x10^3/uL (0.0-1.1) Eosinophils # (Auto) 0.0 x10^3/uL (0.0-0.7) Basophils # (Auto) 0.0 x10^3/uL (0.0-0.2) Segmented Neutrophils % 89 % (35-66) Band Neutrophils % 7 % (0-9) Lymphocytes % 2 % (24-48) Monocytes % 2 % (0-10) Platelet Estimate Increased (ADEQUATE) Sodium Level 144 mmol/L (136-145) 146 mmol/L (136-145) Potassium Level 4.1 mmol/L (3.5-5.1) 3.9 mmol/L (3.5-5.1) Chloride Level 105 mmol/L (98-107) 111 mmol/L (98-107) Carbon Dioxide Level 25 mmol/L (21-32) 21 mmol/L (21-32) Anion Gap 14 (6-14) 14 (6-14) Blood Urea Nitrogen 24 mg/dL (7-20) 25 mg/dL (7-20) Creatinine 2.0 mg/dL (0.6-1.0) 2.1 mg/dL (0.6-1.0) Estimated GFR (Cockcroft-Gault) 26.9 25.5 BUN/Creatinine Ratio 12 (6-20) Glucose Level 114 mg/dL (70-99) 74 mg/dL (70-99) Lactic Acid Level 2.4 mmol/L (0.4-2.0) 1.3 mmol/L (0.4-2.0) Calcium Level 10.0 mg/dL (8.5-10.1) 9.0 mg/dL (8.5-10.1) Total Bilirubin 0.3 mg/dL (0.2-1.0) Aspartate Amino Transf (AST/SGOT) 29 U/L (15-37) Alanine Aminotransferase (ALT/SGPT) 37 U/L (14-59) Alkaline Phosphatase 68 U/L (46-116) Total Protein 7.9 g/dL (6.4-8.2) Albumin 3.9 g/dL (3.4-5.0) Albumin/Globulin Ratio 1.0 (1.0-1.7) Lipase 105 U/L (73-393) Erythrocyte Sedimentation Rate 26 (0-25) Laboratory Tests Test 06/21/19 12:10 06/21/19 19:00 06/22/19 04:00 White Blood Count 15.8 x10^3/uL (4.0-11.0) Red Blood Count 4.04 x10^6/uL (3.50-5.40) Hemoglobin 11.8 g/dL (12.0-15.5) Hematocrit 35.3 % (36.0-47.0) Mean Corpuscular Volume 87 fL (79-100) Mean Corpuscular Hemoglobin 29 pg (25-35) Mean Corpuscular Hemoglobin Concent 34 g/dL (31-37) Red Cell Distribution Width 14.3 % (11.5-14.5) Platelet Count 401 x10^3/uL (140-400) Neutrophils (%) (Auto) 94 % (31-73) Lymphocytes (%) (Auto) 3 % (24-48) Monocytes (%) (Auto) 2 % (0-9) Eosinophils (%) (Auto) 0 % (0-3) Basophils (%) (Auto) 0 % (0-3) Neutrophils # (Auto) 14.9 x10^3/uL (1.8-7.7) Lymphocytes # (Auto) 0.5 x10^3/uL (1.0-4.8) Monocytes # (Auto) 0.3 x10^3/uL (0.0-1.1) Eosinophils # (Auto) 0.0 x10^3/uL (0.0-0.7) Basophils # (Auto) 0.0 x10^3/uL (0.0-0.2) Segmented Neutrophils % 89 % (35-66) Band Neutrophils % 7 % (0-9) Lymphocytes % 2 % (24-48) Monocytes % 2 % (0-10) Platelet Estimate Increased (ADEQUATE) Sodium Level 144 mmol/L (136-145) 146 mmol/L (136-145) Potassium Level 4.1 mmol/L (3.5-5.1) 3.9 mmol/L (3.5-5.1) Chloride Level 105 mmol/L (98-107) 111 mmol/L (98-107) Carbon Dioxide Level 25 mmol/L (21-32) 21 mmol/L (21-32) Anion Gap 14 (6-14) 14 (6-14) Blood Urea Nitrogen 24 mg/dL (7-20) 25 mg/dL (7-20) Creatinine 2.0 mg/dL (0.6-1.0) 2.1 mg/dL (0.6-1.0) Estimated GFR (Cockcroft-Gault) 26.9 25.5 BUN/Creatinine Ratio 12 (6-20) Glucose Level 114 mg/dL (70-99) 74 mg/dL (70-99) Lactic Acid Level 2.4 mmol/L (0.4-2.0) 1.3 mmol/L (0.4-2.0) Calcium Level 10.0 mg/dL (8.5-10.1) 9.0 mg/dL (8.5-10.1) Total Bilirubin 0.3 mg/dL (0.2-1.0) Aspartate Amino Transf (AST/SGOT) 29 U/L (15-37) Alanine Aminotransferase (ALT/SGPT) 37 U/L (14-59) Alkaline Phosphatase 68 U/L (46-116) Total Protein 7.9 g/dL (6.4-8.2) Albumin 3.9 g/dL (3.4-5.0) Albumin/Globulin Ratio 1.0 (1.0-1.7) Lipase 105 U/L (73-393) Erythrocyte Sedimentation Rate 26 (0-25) Assessment/Plan Assessment/Plan IMP DEHYDRATION PYELONEPHRITIS KESHA PLAN AVOID NEPHROTOXINS ANTIBIOTICS HYDRATION WILL FOLLOW UPDATED [id number] KANG MD Jun 22, 2019 11:56
--- NOTE | 2019-06-22 13:05 | PDOC2 ---
CONSULT Date of Consult Date of Consult DATE: 06/22/19 TIME: 13:00 Reason for Consult Reason for Consult: s/p AR & BSO 3 wks ago with abd pain Referring Physician Referring Physician: Dr. Vázquez Identification/Chief Complaint Chief Complaint abd pain Source Source: Chart review, Patient History of Present Illness Reason for Visit: 44 y/o with abd pain s/p AR & BSO 3 wks ago. Pt. dx with pyelonephritis. No evidence post op infection or complications from CT scan and exam. Past Surgical History Past Surgical History: Hysterectomy Family History Family History: Hypertension Social History No ALCOHOL: none Drugs: None Lives: with Family Current Problem List Problem List Problems Medical Problems: (1) Pyelonephritis Status: Acute Current Medications Current Medications Current Medications Sodium Chloride 1,000 ml @ 1,000 mls/hr Q1H IV Last administered on 06/21/19at 12:19; Start 06/21/19 at 12:01; Stop 06/21/19 at 13:00; Status DC Fentanyl Citrate (Fentanyl 2ml Vial) 50 mcg 1X ONCE IV Last administered on 06/21/19at 12:19; Start 06/21/19 at 12:15; Stop 06/21/19 at 12:16; Status DC Ondansetron HCl (Zofran) 4 mg 1X ONCE IV Last administered on 06/21/19at 12:19; Start 06/21/19 at 12:15; Stop 06/21/19 at 12:16; Status DC Famotidine (Pepcid Vial) 20 mg 1X ONCE IVP Last administered on 06/21/19at 12:19; Start 06/21/19 at 12:15; Stop 06/21/19 at 12:16; Status DC Sodium Chloride 1,000 ml @ 1,000 mls/hr 1X ONCE IV Last administered on 06/21/19at 13:06; Start 06/21/19 at 13:00; Stop 06/21/19 at 13:59; Status DC Ceftriaxone Sodium (Rocephin) 1 gm 1X ONCE IVP Last administered on 06/21/19at 13:38; Start 06/21/19 at 13:45; Stop 06/21/19 at 13:46; Status DC Ondansetron HCl (Zofran) 4 mg PRN Q8HRS PRN IV NAUSEA/VOMITING Last administered on 06/21/19 14:26; Start 06/21/19 at 13:45; Stop 06/22/19 at 13:44 Fentanyl Citrate (Fentanyl 2ml Vial) 50 mcg PRN Q1HR PRN IV PAIN Last a dministered on 06/21/19at 19:52; Start 06/21/19 at 13:45; Stop 06/22/19 at 13:44 Sodium Chloride 1,000 ml @ 100 mls/hr Q10H IV Last administered on 06/21/19 15:58; Start 06/21/19 at 13:35; Stop 06/21/19 at 23:45; Status DC Acetaminophen (Tylenol) 650 mg PRN Q4HRS PRN PO FEVER; Start 06/21/19 at 13:45; Stop 06/22/19 at 13:44 Prochlorperazine Edisylate (Compazine) 10 mg PRN Q6HRS PRN IV NAUSEA/VOMITING Last administered on 06/21/19 15:58; Start 06/21/19 at 15:45 Morphine Sulfate (Morphine Sulfate) 2 mg PRN Q2HR PRN IV PAIN Last administered on 06/21/19 16:39; Start 06/21/19 at 15:45 Piperacillin Sod/ Tazobactam Sod (Zosyn Per Pharmacy) 1 each PRN DAILY PRN MC SEE COMMENTS; Start 06/21/19 at 15:45 Piperacillin Sod/ Tazobactam Sod 2.25 gm/Sodium Chloride 50 ml @ 100 mls/hr Q6HRS IV Last administered on 06/22/19 11:09; Start 06/21/19 at 18:00 Sodium Chloride 1,000 ml @ 125 mls/hr Q8H IV Last administered on 06/22/19 11:09; Start 06/21/19 at 21:30 Active Scripts Active Reported Motrin Ib (Ibuprofen) 200 Mg Tablet 800 Mg PO BID PRN Percocet 5-325 Mg Tablet (Oxycodone/Acetaminophen) 1 Each Tablet 2 Tab PO PRN Q6HRS PRN Percocet 5-325 Mg Tablet (Oxycodone/Acetaminophen) 1 Each Tablet 1 Tab PO PRN Q6HRS PRN No Known Medications Prior To Admisstion (Info) Each 1 Each MC 1X Allergies Allergies: Coded Allergies: No Known Drug Allergies (Unverified , 05/28/19) ROS General: YES: Fatigue; No: Chills, Night Sweats, Malaise, Appetite, Other PSYCHOLOGICAL ROS: No: Anxiety, Behavioral Disorder, Concentration difficultie, Decreased libido, Depression, Disorientation, Hallucinations, Hostility, Irritablity, Memory difficulties, Mood Swings, Obsessive thoughts, Physical abuse, Sexual abuse, Sleep disturbances, Suicidal ideation, Other Eyes: No Blurry vision, No Decreased vision, No Double vision, No Dry eyes, No Excessive tearing, No Eye Pain, No Itchy Eyes, No Loss of vision, No Photophobia, No Scotomata, No Uses contacts, No Uses glasses, No Other HEENT: No: Heacaches, Visual Changes, Hearing change, Nasal congestion, Nasal discharge, Oral lesions, Sinus pain, Sore Throat, Epistaxis, Sneezing, Snoring, Tinnitus, Vertigo, Vocal changes, Other ALLERGY AND IMMUNOLOGY: No: Hives, Insect Bite Sensitivity, Itchy/Watery Eyes, Nasal Congestion, Post Nasal Drip, Seasonal Allergies, Other Hematological and Lymphatic: No: Bleeding Problems, Blood Clots, Blood Transfusions, Brusing, Night Sweats, Pallor, Swollen Lymph Nodes, Other ENDOCRINE: No: Breast Changes, Galactorrhea, Hair Pattern Changes, Hot Flashes, Malaise/lethargy, Mood Swings, Palpitations, Polydipsia/polyuria, Skin Changes, Temperature Intolerance, Unexpected Weight Changes, Other Respiratory: No: Cough, Hemoptysis, Orthopnea, Pleuritic Pain, Shortness of breath, SOB with excertion, Sputum Changes, Stridor, Tachypnea, Wheezing, Other Cardiovascular: No Chest Pain, No Palpitations, No Orthopnea, No Paroxysmal Noc. Dyspnea, No Edema, No Lt Headedness, No Other Gastrointestinal: Yes Abdominal Pain; No Nausea, No Vomiting, No Diarrhea, No Constipation, No Melena, No Hematochezia, No Other Genitourinary: YES Urgency Musculoskeletal: No Gait Disturbance, No Joint Pain, No Joint Stiffness, No Joint Swelling, No Muscle Pain, No Muscular Weakness, No Pain In:, No Swelling In:, No Other Skin: No Dry Skin, No Eczema, No Hair Changes, No Lumps, No Mole Changes, No Mottling, No Nail Changes, No Pruritus, No Rash, No Skin Lesion Changes, No Other, No Acne Physical Exam General: Alert, Oriented X3, Cooperative HEENT: Atraumatic Lungs: Clear to auscultation Heart: Regular rate Abdomen: Normal bowel sounds, Soft, No tenderness, No masses Neuro: Normal gait MUSCULOSKELETAL: No joint tenderness Vitals VITALS Vital Signs Date Time Temp Pulse Resp B/P (MAP) Pulse Ox O2 Delivery O2 Flow Rate FiO2 06/22/19 11:00 98.1 66 16 108/59 (75) 100 Room Air 98.1 Labs Labs Laboratory Tests Test 06/21/19 11:50 06/21/19 12:10 06/21/19 19:00 06/22/19 04:00 Urine Collection Type Unknown Urine Color Yellow Urine Clarity Clear Urine pH 6.5 Urine Specific [place] 1.010 Urine Protein 30 mg/dL (NEG-TRACE) Urine Glucose (UA) Negative mg/dL (NEG) Urine Ketones (Stick) Negative mg/dL (NEG) Urine Blood Trace (NEG) Urine Nitrite Negative (NEG) Urine Bilirubin Negative (NEG) Urine Urobilinogen Dipstick 0.2 mg/dL (0.2 mg/dL) Urine Leukocyte Esterase Large (NEG) Urine RBC 3-5 /HPF (0-2) Urine WBC 11-20 /HPF (0-4) Urine Squamous Epithelial Cells Many /LPF Urine Bacteria Moderate /HPF (0-FEW) Urine Mucus Slight /LPF Urine Opiates Screen Neg (NEG) Urine Methadone Screen Neg (NEG) Urine Barbiturates Neg (NEG) Urine Phencyclidine Screen Neg (NEG) Urine Amphetamine/Methamphetamine Neg (NEG) Urine Benzodiazepines Screen Neg (NEG) Urine Cocaine Screen Neg (NEG) Urine Cannabinoids Screen Neg (NEG) Urine Ethyl Alcohol Neg (NEG) White Blood Count 15.8 x10^3/uL (4.0-11.0) Red Blood Count 4.04 x10^6/uL (3.50-5.40) Hemoglobin 11.8 g/dL (12.0-15.5) Hematocrit 35.3 % (36.0-47.0) Mean Corpuscular Volume 87 fL (79-100) Mean Corpuscular Hemoglobin 29 pg (25-35) Mean Corpuscular Hemoglobin Concent 34 g/dL (31-37) Red Cell Distribution Width 14.3 % (11.5-14.5) Platelet Count 401 x10^3/uL (140-400) Neutrophils (%) (Auto) 94 % (31-73) Lymphocytes (%) (Auto) 3 % (24-48) Monocytes (%) (Auto) 2 % (0-9) Eosinophils (%) (Auto) 0 % (0-3) Basophils (%) (Auto) 0 % (0-3) Neutrophils # (Auto) 14.9 x10^3/uL (1.8-7.7) Lymphocytes # (Auto) 0.5 x10^3/uL (1.0-4.8) Monocytes # (Auto) 0.3 x10^3/uL (0.0-1.1) Eosinophils # (Auto) 0.0 x10^3/uL (0.0-0.7) Basophils # (Auto) 0.0 x10^3/uL (0.0-0.2) Segmented Neutrophils % 89 % (35-66) Band Neutrophils % 7 % (0-9) Lymphocytes % 2 % (24-48) Monocytes % 2 % (0-10) Platelet Estimate Increased (ADEQUATE) Sodium Level 144 mmol/L (136-145) 146 mmol/L (136-145) Potassium Level 4.1 mmol/L (3.5-5.1) 3.9 mmol/L (3.5-5.1) Chloride Level 105 mmol/L (98-107) 111 mmol/L (98-107) Carbon Dioxide Level 25 mmol/L (21-32) 21 mmol/L (21-32) Anion Gap 14 (6-14) 14 (6-14) Blood Urea Nitrogen 24 mg/dL (7-20) 25 mg/dL (7-20) Creatinine 2.0 mg/dL (0.6-1.0) 2.1 mg/dL (0.6-1.0) Estimated GFR (Cockcroft-Gault) 26.9 25.5 BUN/Creatinine Ratio 12 (6-20) Glucose Level 114 mg/dL (70-99) 74 mg/dL (70-99) Lactic Acid Level 2.4 mmol/L (0.4-2.0) 1.3 mmol/L (0.4-2.0) Calcium Level 10.0 mg/dL (8.5-10.1) 9.0 mg/dL (8.5-10.1) Total Bilirubin 0.3 mg/dL (0.2-1.0) Aspartate Amino Transf (AST/SGOT) 29 U/L (15-37) Alanine Aminotransferase (ALT/SGPT) 37 U/L (14-59) Alkaline Phosphatase 68 U/L (46-116) Total Protein 7.9 g/dL (6.4-8.2) Albumin 3.9 g/dL (3.4-5.0) Albumin/Globulin Ratio 1.0 (1.0-1.7) Lipase 105 U/L (73-393) Erythrocyte Sedimentation Rate 26 (0-25) Laboratory Tests Test 06/21/19 19:00 06/22/19 04:00 Lactic Acid Level 1.3 mmol/L (0.4-2.0) Erythrocyte Sedimentation Rate 26 (0-25) Sodium Level 146 mmol/L (136-145) Potassium Level 3.9 mmol/L (3.5-5.1) Chloride Level 111 mmol/L (98-107) Carbon Dioxide Level 21 mmol/L (21-32) Anion Gap 14 (6-14) Blood Urea Nitrogen 25 mg/dL (7-20) Creatinine 2.1 mg/dL (0.6-1.0) Estimated GFR (Cockcroft-Gault) 25.5 Glucose Level 74 mg/dL (70-99) Calcium Level 9.0 mg/dL (8.5-10.1) Assessment/Plan Assessment/Plan A: 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 Abd healing as anticipated. P: Continue current care. Pt. to see Dr. Caro in 2 wks for post op f/u. Thank you for consult. ABEL SHAFFER Jr, MD Jun 22, 2019 13:05
[2019-06-22] MEDS ORDERED: ACETAMINOPHEN 325 MG TABLET. PO PRN (14:45)
[2019-06-22 15:00] VITALS: BP 113/55
[2019-06-22 19:13] VITALS: BP 108/55
[2019-06-22 22:00] VITALS: BP 116/58
[2019-06-23] MEDS: IV NORMAL SALINE 1000ML BAG 1,000 ML IV SCH ×3 (02:33→19:10)
[2019-06-23 03:24] VITALS: BP 130/69
[2019-06-23 04:22] LABS: BASO # 0.1 x10^3/uL (0.0-0.2); BASO % 1 % (0-3); EOS # 0.2 x10^3/uL (0.0-0.7); EOS % 2 % (0-3); HEMATOCRIT 28.6 % (36.0-47.0); HEMOGLOBIN 9.7 g/dL (12.0-15.5); LYMPH # 1.3 x10^3/uL (1.0-4.8); LYMPH % 15 % (24-48); MEAN CORPUSCULAR HEMOGLOBIN 30 pg (25-35); MEAN CORPUSCULAR HGB CONC 34 g/dL (31-37); MEAN CORPUSCULAR VOLUME 87 fL (79-100); MONO # 0.7 x10^3/uL (0.0-1.1); MONO % 8 % (0-9); NEUT # 6.7 x10^3/uL (1.8-7.7); NEUT % 75 % (31-73); PLATELET COUNT 263 x10^3/uL (140-400); RED BLOOD COUNT 3.28 x10^6/uL (3.50-5.40); RED CELL DISTRIBUTION WIDTH 14.5 % (11.5-14.5)
[2019-06-23 04:59] LABS: CALCIUM 8.7 mg/dL (8.5-10.1); CREATININE 1.9 mg/dL (0.6-1.0); GFR 28.6; MAGNESIUM 1.8 mg/dL (1.8-2.4); POTASSIUM 3.3 mmol/L (3.5-5.1)
[2019-06-23] MEDS: PIPERACILLIN/TAZOBACTAM 2.25 GM in IV NORMAL SALINE 50ML 50 ML IV SCH ×3 (06:02→19:11)
[2019-06-23 07:00] VITALS: BP 122/60
[2019-06-23] MEDS: PROCHLORPERAZINE 10 MG/2 ML VIAL. IV PRN ×2 (07:33→19:39)
--- NOTE | 2019-06-23 10:36 | PDOC ---
SUBJECTIVE ROS Stable , states Legs hurting some , No Urinary complaints OBJECTIVE Vital Signs Vital Signs Date Time Temp Pulse Resp B/P (MAP) Pulse Ox O2 Delivery O2 Flow Rate FiO2 06/23/19 07:00 98.1 50 16 122/60 (80) 98 Room Air 98.1 I & 0 Intake and Output 06/23/19 07:00 Intake Total 1833 ml Output Total 50 ml Balance 1783 ml Intake Oral 200 ml IV Total 1633 ml Output Emesis 50 ml # Voids 2 PHYSICAL EXAM Physical Exam General: Alert, Oriented X3, Cooperative, No acute distress HEENT- OM moist Heart: Normal S1 Lungs: Clear Abdomen: Non tender Extremities: No edema No Uriarte DIAGNOSIS/ASSESSMENT Assessment & Plan KESHA - Slowly improving Likely sec to Pyelonephritis /ATN 2/2 Dehydration Abx per Primary Supportive care, strict I/O. Monitor , avoid Nephrotoxins Pyelonephritis- On Abx per primary/ID Hypokalemia- Mild , replace as needed s/p AR & BSO 3 wks ago COMMENT/RELEVANT DATA Meds Current Medications Medications (Trade) Dose Ordered Sig/Ro Start Time Stop Time Status Last Admin Dose Admin Acetaminophen (Tylenol) 650 mg PRN Q6HRS PRN 06/22/19 14:45 06/22/19 16:01 650 MG Ceftriaxone Sodium (Rocephin) 1 gm 1X ONCE 06/21/19 13:45 06/21/19 13:46 DC 06/21/19 13:38 1 GM Famotidine (Pepcid Vial) 20 mg 1X ONCE 06/21/19 12:15 06/21/19 12:16 DC 06/21/19 12:19 20 MG Fentanyl Citrate (Fentanyl 2ml Vial) 50 mcg PRN Q1HR PRN 06/21/19 13:45 06/22/19 13:44 DC 06/21/19 19:52 50 MCG Morphine Sulfate (Morphine Sulfate) 2 mg PRN Q2HR PRN 06/21/19 15:45 06/21/19 16:39 2 MG Ondansetron HCl (Zofran) 4 mg PRN Q8HRS PRN 06/21/19 13:45 06/22/19 13:44 DC 06/21/19 14:26 4 MG Piperacillin Sod/ Tazobactam Sod (Zosyn Per Pharmacy) 1 each PRN DAILY PRN 06/21/19 15:45 Piperacillin Sod/ Tazobactam Sod 2.25 gm/Sodium Chloride 50 ml @ 100 mls/hr Q6HRS 06/21/19 18:00 06/23/19 06:02 100 MLS/HR Prochlorperazine Edisylate (Compazine) 10 mg PRN Q6HRS PRN 06/21/19 15:45 06/23/19 07:34 10 MG Sodium Chloride 1,000 ml @ 125 mls/hr Q8H 06/21/19 21:30 06/23/19 09:32 125 MLS/HR Lab Laboratory Tests Test 06/23/19 03:45 06/23/19 04:00 Sodium Level 144 mmol/L (136-145) Potassium Level 3.3 mmol/L (3.5-5.1) Chloride Level 110 mmol/L (98-107) Carbon Dioxide Level 21 mmol/L (21-32) Anion Gap 13 (6-14) Blood Urea Nitrogen 20 mg/dL (7-20) Creatinine 1.9 mg/dL (0.6-1.0) Estimated GFR (Cockcroft-Gault) 28.6 Glucose Level 92 mg/dL (70-99) Calcium Level 8.7 mg/dL (8.5-10.1) Phosphorus Level 5.0 mg/dL (2.6-4.7) Magnesium Level 1.8 mg/dL (1.8-2.4) White Blood Count 9.0 x10^3/uL (4.0-11.0) Red Blood Count 3.28 x10^6/uL (3.50-5.40) Hemoglobin 9.7 g/dL (12.0-15.5) Hematocrit 28.6 % (36.0-47.0) Mean Corpuscular Volume 87 fL (79-100) Mean Corpuscular Hemoglobin 30 pg (25-35) Mean Corpuscular Hemoglobin Concent 34 g/dL (31-37) Red Cell Distribution Width 14.5 % (11.5-14.5) Platelet Count 263 x10^3/uL (140-400) Neutrophils (%) (Auto) 75 % (31-73) Lymphocytes (%) (Auto) 15 % (24-48) Monocytes (%) (Auto) 8 % (0-9) Eosinophils (%) (Auto) 2 % (0-3) Basophils (%) (Auto) 1 % (0-3) Neutrophils # (Auto) 6.7 x10^3/uL (1.8-7.7) Lymphocytes # (Auto) 1.3 x10^3/uL (1.0-4.8) Monocytes # (Auto) 0.7 x10^3/uL (0.0-1.1) Eosinophils # (Auto) 0.2 x10^3/uL (0.0-0.7) Basophils # (Auto) 0.1 x10^3/uL (0.0-0.2) Results All relevant outside records, renal labs, imaging studies, telemetry/EKG's were reviewed. VIRAJ SPENCER MD Jun 23, 2019 10:36
--- NOTE | 2019-06-23 10:37 | PDOC ---
PROGRESS NOTES Chief Complaint Chief Complaint impression Urinary tract infection pyelonephritis Diffuse bilateral perinephric infiltration with edematous appearance of the kidneys may be seen with pyelonephritis. azotemia acute renal failure, vasomotor KESHA - Slowly improving Likely sec to Pyelonephritis /ATN 2/2 Dehydration 38 min pt exam, chart review, > 50% of time spent with exam, chart review, pt care coordination History of Present Illness History of Present Illness some nausea, has poor PO intake, start clears, advance as able on zosyn, feels much better Vitals Vitals Vital Signs Date Time Temp Pulse Resp B/P (MAP) Pulse Ox O2 Delivery O2 Flow Rate FiO2 06/23/19 07:00 98.1 50 16 122/60 (80) 98 Room Air 98.1 Physical Exam General: Alert, Oriented X3, Cooperative, mild distress Heart: Regular rate, Normal S1, Normal S2 Lungs: Clear Abdomen: Normal bowel sounds, Soft, No tenderness, No masses Extremities: No clubbing, No cyanosis Skin: No breakdown Labs LABS SPEC #: [id number] DARIA: 06/21/19 STATUS: COMP REQ #: [id number] RECD: 06/21/[address]: NASRIN LEWIS APRN SOURCE: VOID ENTR: 06/21/[address]: ROHAN WOLFE MD SPDESC: NON,STAFF ORDERED: URINE CULTURE Procedure Result URINE CULTURE Final Final report URINE CULTURE RES 1 Final Comment Mixed urogenital billy 50,000-100,000 colony forming units per mL Performed at: DA - [facility] [place] [id number] [facility] [address], [place], [place] [id number] Salesperson Driver: OSIEL Taylor MD, Phone: [phone] PROCEDURE: CT ABDOMEN PELVIS WO CONTRAST EXAM: CT Abdomen and Pelvis without IV contrast CLINICAL HISTORY: Abdominal pain, vomiting. COMPARISON: none TECHNIQUE: Helical CT of the abdomen and pelvis without intravenous contrast. Axial, coronal and sagittal reformatted images were generated. PQRS compliance statement - One or more of the following individualized dose reduction techniques were utilized for this study: 1. Automated exposure control 2. Adjustment of the mA and/or kV according to patient size 3. Use of iterative reconstruction technique FINDINGS: Lack of intravenous contrast limits evaluation of solid organs, vasculature, and lymph nodes. Lower chest: Linear opacities in lower lobes likely scarring/atelectasis. Abdomen and Pelvis: No focal liver lesion. Spleen is unremarkable. Adrenal glands are normal. Pancreas is unremarkable. Gallbladder is normal. No biliary ductal dilatation. The kidneys are enlarged bilaterally with associated perinephric fat infiltration. This may be seen with pyelonephritis. No renal tract calculus. No hydronephrosis or hydroureter. Bladder is unremarkable. Large volume colonic stool content is seen. No small or large bowel dilatation. No evidence for bowel obstruction. Appendix is normal. No abdominal or pelvic ascites. No abdominal or pelvic lymphadenopathy. Bones: Sclerotic lesion T10 vertebral body, nonspecific possibly bone island. IMPRESSION: Diffuse bilateral perinephric infiltration with edematous appearance of the kidneys may be seen with pyelonephritis. Electronically signed by: Delroy Cm MD (06/21/2019 1:17 PM) [facility] Laboratory Tests Test 06/23/19 03:45 06/23/19 04:00 Sodium Level 144 mmol/L (136-145) Potassium Level 3.3 mmol/L (3.5-5.1) Chloride Level 110 mmol/L (98-107) Carbon Dioxide Level 21 mmol/L (21-32) Anion Gap 13 (6-14) Blood Urea Nitrogen 20 mg/dL (7-20) Creatinine 1.9 mg/dL (0.6-1.0) Estimated GFR (Cockcroft-Gault) 28.6 Glucose Level 92 mg/dL (70-99) Calcium Level 8.7 mg/dL (8.5-10.1) Phosphorus Level 5.0 mg/dL (2.6-4.7) Magnesium Level 1.8 mg/dL (1.8-2.4) White Blood Count 9.0 x10^3/uL (4.0-11.0) Red Blood Count 3.28 x10^6/uL (3.50-5.40) Hemoglobin 9.7 g/dL (12.0-15.5) Hematocrit 28.6 % (36.0-47.0) Mean Corpuscular Volume 87 fL (79-100) Mean Corpuscular Hemoglobin 30 pg (25-35) Mean Corpuscular Hemoglobin Concent 34 g/dL (31-37) Red Cell Distribution Width 14.5 % (11.5-14.5) Platelet Count 263 x10^3/uL (140-400) Neutrophils (%) (Auto) 75 % (31-73) Lymphocytes (%) (Auto) 15 % (24-48) Monocytes (%) (Auto) 8 % (0-9) Eosinophils (%) (Auto) 2 % (0-3) Basophils (%) (Auto) 1 % (0-3) Neutrophils # (Auto) 6.7 x10^3/uL (1.8-7.7) Lymphocytes # (Auto) 1.3 x10^3/uL (1.0-4.8) Monocytes # (Auto) 0.7 x10^3/uL (0.0-1.1) Eosinophils # (Auto) 0.2 x10^3/uL (0.0-0.7) Basophils # (Auto) 0.1 x10^3/uL (0.0-0.2) Assessment and Plan Assessmemt and Plan Problems Medical Problems: (1) Pyelonephritis Status: Acute Comment Review of Relevant I have reviewed the following items ailyn (where applicable) has been applied. Labs Laboratory Tests Test 06/21/19 11:50 06/21/19 12:10 06/21/19 19:00 06/22/19 04:00 Urine Collection Type Unknown Urine Color Yellow Urine Clarity Clear Urine pH 6.5 Urine Specific [place] 1.010 Urine Protein 30 mg/dL (NEG-TRACE) Urine Glucose (UA) Negative mg/dL (NEG) Urine Ketones (Stick) Negative mg/dL (NEG) Urine Blood Trace (NEG) Urine Nitrite Negative (NEG) Urine Bilirubin Negative (NEG) Urine Urobilinogen Dipstick 0.2 mg/dL (0.2 mg/dL) Urine Leukocyte Esterase Large (NEG) Urine RBC 3-5 /HPF (0-2) Urine WBC 11-20 /HPF (0-4) Urine Squamous Epithelial Cells Many /LPF Urine Bacteria Moderate /HPF (0-FEW) Urine Mucus Slight /LPF Urine Opiates Screen Neg (NEG) Urine Methadone Screen Neg (NEG) Urine Barbiturates Neg (NEG) Urine Phencyclidine Screen Neg (NEG) Urine Amphetamine/Methamphetamine Neg (NEG) Urine Benzodiazepines Screen Neg (NEG) Urine Cocaine Screen Neg (NEG) Urine Cannabinoids Screen Neg (NEG) Urine Ethyl Alcohol Neg (NEG) White Blood Count 15.8 x10^3/uL (4.0-11.0) Red Blood Count 4.04 x10^6/uL (3.50-5.40) Hemoglobin 11.8 g/dL (12.0-15.5) Hematocrit 35.3 % (36.0-47.0) Mean Corpuscular Volume 87 fL (79-100) Mean Corpuscular Hemoglobin 29 pg (25-35) Mean Corpuscular Hemoglobin Concent 34 g/dL (31-37) Red Cell Distribution Width 14.3 % (11.5-14.5) Platelet Count 401 x10^3/uL (140-400) Neutrophils (%) (Auto) 94 % (31-73) Lymphocytes (%) (Auto) 3 % (24-48) Monocytes (%) (Auto) 2 % (0-9) Eosinophils (%) (Auto) 0 % (0-3) Basophils (%) (Auto) 0 % (0-3) Neutrophils # (Auto) 14.9 x10^3/uL (1.8-7.7) Lymphocytes # (Auto) 0.5 x10^3/uL (1.0-4.8) Monocytes # (Auto) 0.3 x10^3/uL (0.0-1.1) Eosinophils # (Auto) 0.0 x10^3/uL (0.0-0.7) Basophils # (Auto) 0.0 x10^3/uL (0.0-0.2) Segmented Neutrophils % 89 % (35-66) Band Neutrophils % 7 % (0-9) Lymphocytes % 2 % (24-48) Monocytes % 2 % (0-10) Platelet Estimate Increased (ADEQUATE) Sodium Level 144 mmol/L (136-145) 146 mmol/L (136-145) Potassium Level 4.1 mmol/L (3.5-5.1) 3.9 mmol/L (3.5-5.1) Chloride Level 105 mmol/L (98-107) 111 mmol/L (98-107) Carbon Dioxide Level 25 mmol/L (21-32) 21 mmol/L (21-32) Anion Gap 14 (6-14) 14 (6-14) Blood Urea Nitrogen 24 mg/dL (7-20) 25 mg/dL (7-20) Creatinine 2.0 mg/dL (0.6-1.0) 2.1 mg/dL (0.6-1.0) Estimated GFR (Cockcroft-Gault) 26.9 25.5 BUN/Creatinine Ratio 12 (6-20) Glucose Level 114 mg/dL (70-99) 74 mg/dL (70-99) Lactic Acid Level 2.4 mmol/L (0.4-2.0) 1.3 mmol/L (0.4-2.0) Calcium Level 10.0 mg/dL (8.5-10.1) 9.0 mg/dL (8.5-10.1) Total Bilirubin 0.3 mg/dL (0.2-1.0) Aspartate Amino Transf (AST/SGOT) 29 U/L (15-37) Alanine Aminotransferase (ALT/SGPT) 37 U/L (14-59) Alkaline Phosphatase 68 U/L (46-116) Total Protein 7.9 g/dL (6.4-8.2) Albumin 3.9 g/dL (3.4-5.0) Albumin/Globulin Ratio 1.0 (1.0-1.7) Lipase 105 U/L (73-393) Erythrocyte Sedimentation Rate 26 (0-25) Test 06/23/19 03:45 06/23/19 04:00 Sodium Level 144 mmol/L (136-145) Potassium Level 3.3 mmol/L (3.5-5.1) Chloride Level 110 mmol/L (98-107) Carbon Dioxide Level 21 mmol/L (21-32) Anion Gap 13 (6-14) Blood Urea Nitrogen 20 mg/dL (7-20) Creatinine 1.9 mg/dL (0.6-1.0) Estimated GFR (Cockcroft-Gault) 28.6 Glucose Level 92 mg/dL (70-99) Calcium Level 8.7 mg/dL (8.5-10.1) Phosphorus Level 5.0 mg/dL (2.6-4.7) Magnesium Level 1.8 mg/dL (1.8-2.4) White Blood Count 9.0 x10^3/uL (4.0-11.0) Red Blood Count 3.28 x10^6/uL (3.50-5.40) Hemoglobin 9.7 g/dL (12.0-15.5) Hematocrit 28.6 % (36.0-47.0) Mean Corpuscular Volume 87 fL (79-100) Mean Corpuscular Hemoglobin 30 pg (25-35) Mean Corpuscular Hemoglobin Concent 34 g/dL (31-37) Red Cell Distribution Width 14.5 % (11.5-14.5) Platelet Count 263 x10^3/uL (140-400) Neutrophils (%) (Auto) 75 % (31-73) Lymphocytes (%) (Auto) 15 % (24-48) Monocytes (%) (Auto) 8 % (0-9) Eosinophils (%) (Auto) 2 % (0-3) Basophils (%) (Auto) 1 % (0-3) Neutrophils # (Auto) 6.7 x10^3/uL (1.8-7.7) Lymphocytes # (Auto) 1.3 x10^3/uL (1.0-4.8) Monocytes # (Auto) 0.7 x10^3/uL (0.0-1.1) Eosinophils # (Auto) 0.2 x10^3/uL (0.0-0.7) Basophils # (Auto) 0.1 x10^3/uL (0.0-0.2) Laboratory Tests Test 06/23/19 03:45 06/23/19 04:00 Sodium Level 144 mmol/L (136-145) Potassium Level 3.3 mmol/L (3.5-5.1) Chloride Level 110 mmol/L (98-107) Carbon Dioxide Level 21 mmol/L (21-32) Anion Gap 13 (6-14) Blood Urea Nitrogen 20 mg/dL (7-20) Creatinine 1.9 mg/dL (0.6-1.0) Estimated GFR (Cockcroft-Gault) 28.6 Glucose Level 92 mg/dL (70-99) Calcium Level 8.7 mg/dL (8.5-10.1) Phosphorus Level 5.0 mg/dL (2.6-4.7) Magnesium Level 1.8 mg/dL (1.8-2.4) White Blood Count 9.0 x10^3/uL (4.0-11.0) Red Blood Count 3.28 x10^6/uL (3.50-5.40) Hemoglobin 9.7 g/dL (12.0-15.5) Hematocrit 28.6 % (36.0-47.0) Mean Corpuscular Volume 87 fL (79-100) Mean Corpuscular Hemoglobin 30 pg (25-35) Mean Corpuscular Hemoglobin Concent 34 g/dL (31-37) Red Cell Distribution Width 14.5 % (11.5-14.5) Platelet Count 263 x10^3/uL (140-400) Neutrophils (%) (Auto) 75 % (31-73) Lymphocytes (%) (Auto) 15 % (24-48) Monocytes (%) (Auto) 8 % (0-9) Eosinophils (%) (Auto) 2 % (0-3) Basophils (%) (Auto) 1 % (0-3) Neutrophils # (Auto) 6.7 x10^3/uL (1.8-7.7) Lymphocytes # (Auto) 1.3 x10^3/uL (1.0-4.8) Monocytes # (Auto) 0.7 x10^3/uL (0.0-1.1) Eosinophils # (Auto) 0.2 x10^3/uL (0.0-0.7) Basophils # (Auto) 0.1 x10^3/uL (0.0-0.2) Medications Current Medications Sodium Chloride 1,000 ml @ 1,000 mls/hr Q1H IV Last administered on 06/21/19at 12:19; Start 06/21/19 at 12:01; Stop 06/21/19 at 13:00; Status DC Fentanyl Citrate (Fentanyl 2ml Vial) 50 mcg 1X ONCE IV Last administered on 06/21/19at 12:19; Start 06/21/19 at 12:15; Stop 06/21/19 at 12:16; Status DC Ondansetron HCl (Zofran) 4 mg 1X ONCE IV Last administered on 06/21/19at 12:19; Start 06/21/19 at 12:15; Stop 06/21/19 at 12:16; Status DC Famotidine (Pepcid Vial) 20 mg 1X ONCE IVP Last administered on 06/21/19at 12:19; Start 06/21/19 at 12:15; Stop 06/21/19 at 12:16; Status DC Sodium Chloride 1,000 ml @ 1,000 mls/hr 1X ONCE IV Last administered on 06/21/19at 13:06; Start 06/21/19 at 13:00; Stop 06/21/19 at 13:59; Status DC Ceftriaxone Sodium (Rocephin) 1 gm 1X ONCE IVP Last administered on 06/21/19at 13:38; Start 06/21/19 at 13:45; Stop 06/21/19 at 13:46; Status DC Ondansetron HCl (Zofran) 4 mg PRN Q8HRS PRN IV NAUSEA/VOMITING Last administered on 06/21/19at 14:26; Start 06/21/19 at 13:45; Stop 06/22/19 at 13:44; Status DC Fentanyl Citrate (Fentanyl 2ml Vial) 50 mcg PRN Q1HR PRN IV PAIN Last administered on 06/21/19at 19:52; Start 06/21/19 at 13:45; Stop 06/22/19 at 13:44; Status DC Sodium Chloride 1,000 ml @ 100 mls/hr Q10H IV Last administered on 06/21/19at 15:58; Start 06/21/19 at 13:35; Stop 06/21/19 at 23:45; Status DC Acetaminophen (Tylenol) 650 mg PRN Q4HRS PRN PO FEVER; Start 06/21/19 at 13:45; Stop 06/22/19 at 13:44; Status DC Prochlorperazine Edisylate (Compazine) 10 mg PRN Q6HRS PRN IV NAUSEA/VOMITING Last administered on 06/23/19 07:34; Start 06/21/19 at 15:45 Morphine Sulfate (Morphine Sulfate) 2 mg PRN Q2HR PRN IV PAIN Last administered on 06/21/19at 16:39; Start 06/21/19 at 15:45 Piperacillin Sod/ Tazobactam Sod (Zosyn Per Pharmacy) 1 each PRN DAILY PRN MC SEE COMMENTS; Start 06/21/19 at 15:45 Piperacillin Sod/ Tazobactam Sod 2.25 gm/Sodium Chloride 50 ml @ 100 mls/hr Q6HRS IV Last administered on 06/23/19 06:02; Start 06/21/19 at 18:00 Sodium Chloride 1,000 ml @ 125 mls/hr Q8H IV Last administered on 06/23/19 09:32; Start 06/21/19 at 21:30 Acetaminophen (Tylenol) 650 mg PRN Q6HRS PRN PO HEADACHE Last administered on 06/22/19 16:01; Start 06/22/19 at 14:45 Active Scripts Active Reported Motrin Ib (Ibuprofen) 200 Mg Tablet 800 Mg PO BID PRN Percocet 5-325 Mg Tablet (Oxycodone/Acetaminophen) 1 Each Tablet 2 Tab PO PRN Q6HRS PRN Percocet 5-325 Mg Tablet (Oxycodone/Acetaminophen) 1 Each Tablet 1 Tab PO PRN Q6HRS PRN No Known Medications Prior To Admisstion (Info) Each 1 Each MC 1X Vitals/I & O Vital Sign - Last 24 Hours 06/22/19 06/22/19 06/22/19 06/22/19 11:00 15:00 19:13 20:00 Temp 98.1 98.2 98.4 98.1 98.2 98.4 Pulse 66 63 56 Resp 16 16 16 B/P (MAP) 108/59 (75) 113/55 (74) 108/55 (72) Pulse Ox 100 100 97 O2 Delivery Room Air Room Air Room Air Room Air 06/22/19 06/23/19 06/23/19 22:00 03:24 07:00 Temp 98.2 98.1 98.1 98.2 98.1 98.1 Pulse 65 58 50 Resp 16 16 16 B/P (MAP) 116/58 (77) 130/69 (89) 122/60 (80) Pulse Ox 95 97 98 O2 Delivery Room Air Room Air Room Air Intake and Output 06/22/19 06/22/19 06/23/19 14:59 22:59 06:59 Intake Total 1633 ml 200 ml Output Total 50 ml Balance 1633 ml 150 ml CASS PADILLA MD Jun 23, 2019 10:37
[2019-06-23 10:53] VITALS: BP 130/73
--- NOTE | 2019-06-23 14:18 | NUR ---
SS following for discharge planning. SS reviewed pt chart. Pt is from home and is currently on room air. No discharge needs noted at this time. SS will continue to follow for discharge planning.
[2019-06-23] MEDS ORDERED: POTASSIUM CHLORIDE 20 MEQ TABLET.ER. PO ONE (14:30)
[2019-06-23 15:00] VITALS: BP 132/71
--- NOTE | 2019-06-23 18:33 | NUR ---
This newspaper writer received report from Ady at [phone]. Pt arrived on unit at approx 1800 via wheelchair. Pt oriented to room, call light, and bathroom. Pt has no additional concerns. Will continue to monitor.
[2019-06-23 19:00] VITALS: BP 121/72
[2019-06-23] MEDS: LACTOBACILLUS RHAMNOSUS GG 1 CAPSULE. PO SCH (21:23)
[2019-06-23 23:00] VITALS: BP 119/70
[2019-06-24] MEDS: PIPERACILLIN/TAZOBACTAM 2.25 GM in IV NORMAL SALINE 50ML 50 ML IV SCH ×2 (00:13→06:28)
[2019-06-24 03:00] VITALS: BP 134/71
[2019-06-24] MEDS: IV NORMAL SALINE 1000ML BAG 1,000 ML IV SCH (04:30)
[2019-06-24 07:00] VITALS: BP 115/72
[2019-06-24] MEDS ORDERED: POTASSIUM CHLORIDE 20 MEQ TABLET.ER. PO SCH (08:00)
[2019-06-24 08:12] LABS: BASO # 0.1 x10^3/uL (0.0-0.2); BASO % 1 % (0-3); EOS # 0.2 x10^3/uL (0.0-0.7); EOS % 3 % (0-3); HEMATOCRIT 28.9 % (36.0-47.0); HEMOGLOBIN 9.8 g/dL (12.0-15.5); LYMPH # 2.2 x10^3/uL (1.0-4.8); LYMPH % 29 % (24-48); MEAN CORPUSCULAR HEMOGLOBIN 30 pg (25-35); MEAN CORPUSCULAR HGB CONC 34 g/dL (31-37); MEAN CORPUSCULAR VOLUME 88 fL (79-100); MONO # 0.6 x10^3/uL (0.0-1.1); MONO % 8 % (0-9); NEUT # 4.7 x10^3/uL (1.8-7.7); NEUT % 60 % (31-73); PLATELET COUNT 246 x10^3/uL (140-400); RED CELL DISTRIBUTION WIDTH 14.5 % (11.5-14.5); WHITE BLOOD COUNT 7.8 x10^3/uL (4.0-11.0)
[2019-06-24] MEDS: LACTOBACILLUS RHAMNOSUS GG 1 CAPSULE. PO SCH (08:31)
[2019-06-24 08:33] LABS: ALBUMIN/GLOBULIN RATIO 0.9 (1.0-1.7); CALCIUM 8.8 mg/dL (8.5-10.1); CREATININE 1.1 mg/dL (0.6-1.0); GFR 53.7; POTASSIUM 3.5 mmol/L (3.5-5.1); TOTAL BILIRUBIN 0.4 mg/dL (0.2-1.0); TOTAL PROTEIN 6.5 g/dL (6.4-8.2)
--- NOTE | 2019-06-24 10:40 | PDOC ---
[employer] PROGRESS NOTE Chief Complaint Chief Complaint Urinary tract infection Pyelonephritis Diffuse bilateral perinephric infiltration with edematous appearance of the kidneys may be seen with pyelonephritis. azotemia acute renal failure, vasomotor KESHA - Slowly improving Likely sec to Pyelonephritis /ATN 2/2 Dehydration 38 min pt exam, chart review, > 50% of time spent with exam, chart review, pt care coordination History of Present Illness History of Present Illness 06-24-19 Pt seen sitting in chair at bedside watching TV DW RN Vitals/I&O Vitals/I&O: Vital Signs Date Time Temp Pulse Resp B/P (MAP) Pulse Ox O2 Delivery O2 Flow Rate FiO2 06/24/19 08:00 Room Air 06/24/19 07:00 98.1 57 18 115/72 (86) 99 98.1 I & O 06/23/19 06/23/19 06/24/19 14:59 22:59 06:59 Intake Total 450 ml 1170 ml Balance 450 ml 1170 ml Physical Exam General: Alert, Oriented X3, Cooperative, mild distress Heart: Regular rate, Normal S1, Normal S2 Lungs: Clear Abdomen: Normal bowel sounds, Soft, No tenderness, No masses Extremities: No clubbing, No cyanosis Skin: No breakdown Labs Labs: Laboratory Tests Test 06/24/19 06:51 White Blood Count 7.8 x10^3/uL (4.0-11.0) Red Blood Count 3.30 x10^6/uL (3.50-5.40) Hemoglobin 9.8 g/dL (12.0-15.5) Hematocrit 28.9 % (36.0-47.0) Mean Corpuscular Volume 88 fL (79-100) Mean Corpuscular Hemoglobin 30 pg (25-35) Mean Corpuscular Hemoglobin Concent 34 g/dL (31-37) Red Cell Distribution Width 14.5 % (11.5-14.5) Platelet Count 246 x10^3/uL (140-400) Neutrophils (%) (Auto) 60 % (31-73) Lymphocytes (%) (Auto) 29 % (24-48) Monocytes (%) (Auto) 8 % (0-9) Eosinophils (%) (Auto) 3 % (0-3) Basophils (%) (Auto) 1 % (0-3) Neutrophils # (Auto) 4.7 x10^3/uL (1.8-7.7) Lymphocytes # (Auto) 2.2 x10^3/uL (1.0-4.8) Monocytes # (Auto) 0.6 x10^3/uL (0.0-1.1) Eosinophils # (Auto) 0.2 x10^3/uL (0.0-0.7) Basophils # (Auto) 0.1 x10^3/uL (0.0-0.2) Sodium Level 145 mmol/L (136-145) Potassium Level 3.5 mmol/L (3.5-5.1) Chloride Level 109 mmol/L (98-107) Carbon Dioxide Level 23 mmol/L (21-32) Anion Gap 13 (6-14) Blood Urea Nitrogen 11 mg/dL (7-20) Creatinine 1.1 mg/dL (0.6-1.0) Estimated GFR (Cockcroft-Gault) 53.7 BUN/Creatinine Ratio 10 (6-20) Glucose Level 80 mg/dL (70-99) Calcium Level 8.8 mg/dL (8.5-10.1) Total Bilirubin 0.4 mg/dL (0.2-1.0) Aspartate Amino Transf (AST/SGOT) 27 U/L (15-37) Alanine Aminotransferase (ALT/SGPT) 42 U/L (14-59) Alkaline Phosphatase 58 U/L (46-116) Total Protein 6.5 g/dL (6.4-8.2) Albumin 3.0 g/dL (3.4-5.0) Albumin/Globulin Ratio 0.9 (1.0-1.7) Review of Systems Review of Systems: No co vision changes No co skin changes Assessment and Plan Assessmemt and Plan Problems Medical Problems: (1) Pyelonephritis Status: Acute Assesment and Plan Assessment: UTI Pyelonephritis Azotemia Dehydration Plan: IV fluids Discharge on Augmentin 875 mg PO BID Comment Review of Relevant I have reviewed the following items ailyn (where applicable) has been applied. Medications: Current Medications Medications (Trade) Dose Ordered Sig/Ro Route PRN Reason Start Time Stop Time Status Last Admin Dose Admin Potassium Chloride (Klor-Con) 40 meq 1X ONCE PO 06/23/19 14:30 06/23/19 14:31 DC 06/23/19 14:46 Potassium Chloride (Klor-Con) 20 meq DAILYWBKFT PO 06/24/19 08:00 06/24/19 08:31 Lactobacillus Rhamnosus (Culturelle) 1 cap BID PO 06/23/19 21:00 06/24/19 08:31 ROSALINDA DAWSON III DO Jun 24, 2019 10:40
--- NOTE | 2019-06-24 10:46 | PDOC ---
SUBJECTIVE ROS Stable , no complaints OBJECTIVE Vital Signs Vital Signs Date Time Temp Pulse Resp B/P (MAP) Pulse Ox O2 Delivery O2 Flow Rate FiO2 06/24/19 08:00 Room Air 06/24/19 07:00 98.1 57 18 115/72 (86) 99 98.1 I & 0 Intake and Output 06/24/19 06:59 Intake Total 1620 ml Balance 1620 ml Intake Oral 570 ml IV Total 1050 ml # Voids 5 PHYSICAL EXAM Physical Exam General: Alert, Oriented X3, Cooperative, No acute distress HEENT- OM moist Heart: Normal S1 Lungs: Clear Abdomen: Non tender Extremities: No edema No Uriarte DIAGNOSIS/ASSESSMENT Assessment & Plan KESHA - improving, nearly resolved Likely sec to Pyelonephritis /ATN 2/2 Dehydration Supportive care, strict I/O. Monitor , avoid Nephrotoxins Pyelonephritis- On Abx per primary/ID Hypokalemia- Mild , replace as needed s/p AR & BSO 3 wks ago DC per Primary COMMENT/RELEVANT DATA Meds Current Medications Medications (Trade) Dose Ordered Sig/Ro Start Time Stop Time Status Last Admin Dose Admin Acetaminophen (Tylenol) 650 mg PRN Q6HRS PRN 06/22/19 14:45 06/22/19 16:01 650 MG Ceftriaxone Sodium (Rocephin) 1 gm 1X ONCE 06/21/19 13:45 06/21/19 13:46 DC 06/21/19 13:38 1 GM Famotidine (Pepcid Vial) 20 mg 1X ONCE 06/21/19 12:15 06/21/19 12:16 DC 06/21/19 12:19 20 MG Fentanyl Citrate (Fentanyl 2ml Vial) 50 mcg PRN Q1HR PRN 06/21/19 13:45 06/22/19 13:44 DC 06/21/19 19:52 50 MCG Lactobacillus Rhamnosus (Culturelle) 1 cap BID 06/23/19 21:00 06/24/19 08:31 1 CAP Morphine Sulfate (Morphine Sulfate) 2 mg PRN Q2HR PRN 06/21/19 15:45 06/21/19 16:39 2 MG Ondansetron HCl (Zofran) 4 mg PRN Q8HRS PRN 06/21/19 13:45 06/22/19 13:44 DC 06/21/19 14:26 4 MG Piperacillin Sod/ Tazobactam Sod (Zosyn Per Pharmacy) 1 each PRN DAILY PRN 06/21/19 15:45 Piperacillin Sod/ Tazobactam Sod 2.25 gm/Sodium Chloride 50 ml @ 100 mls/hr Q6HRS 06/21/19 18:00 06/24/19 06:28 100 MLS/HR Potassium Chloride (Klor-Con) 20 meq DAILYWBKFT 06/24/19 08:00 06/24/19 08:31 20 MEQ Prochlorperazine Edisylate (Compazine) 10 mg PRN Q6HRS PRN 06/21/19 15:45 06/23/19 19:39 10 MG Sodium Chloride 1,000 ml @ 125 mls/hr Q8H 06/21/19 21:30 06/24/19 05:32 125 MLS/HR Lab Laboratory Tests Test 06/24/19 06:51 White Blood Count 7.8 x10^3/uL (4.0-11.0) Red Blood Count 3.30 x10^6/uL (3.50-5.40) Hemoglobin 9.8 g/dL (12.0-15.5) Hematocrit 28.9 % (36.0-47.0) Mean Corpuscular Volume 88 fL (79-100) Mean Corpuscular Hemoglobin 30 pg (25-35) Mean Corpuscular Hemoglobin Concent 34 g/dL (31-37) Red Cell Distribution Width 14.5 % (11.5-14.5) Platelet Count 246 x10^3/uL (140-400) Neutrophils (%) (Auto) 60 % (31-73) Lymphocytes (%) (Auto) 29 % (24-48) Monocytes (%) (Auto) 8 % (0-9) Eosinophils (%) (Auto) 3 % (0-3) Basophils (%) (Auto) 1 % (0-3) Neutrophils # (Auto) 4.7 x10^3/uL (1.8-7.7) Lymphocytes # (Auto) 2.2 x10^3/uL (1.0-4.8) Monocytes # (Auto) 0.6 x10^3/uL (0.0-1.1) Eosinophils # (Auto) 0.2 x10^3/uL (0.0-0.7) Basophils # (Auto) 0.1 x10^3/uL (0.0-0.2) Sodium Level 145 mmol/L (136-145) Potassium Level 3.5 mmol/L (3.5-5.1) Chloride Level 109 mmol/L (98-107) Carbon Dioxide Level 23 mmol/L (21-32) Anion Gap 13 (6-14) Blood Urea Nitrogen 11 mg/dL (7-20) Creatinine 1.1 mg/dL (0.6-1.0) Estimated GFR (Cockcroft-Gault) 53.7 BUN/Creatinine Ratio 10 (6-20) Glucose Level 80 mg/dL (70-99) Calcium Level 8.8 mg/dL (8.5-10.1) Total Bilirubin 0.4 mg/dL (0.2-1.0) Aspartate Amino Transf (AST/SGOT) 27 U/L (15-37) Alanine Aminotransferase (ALT/SGPT) 42 U/L (14-59) Alkaline Phosphatase 58 U/L (46-116) Total Protein 6.5 g/dL (6.4-8.2) Albumin 3.0 g/dL (3.4-5.0) Albumin/Globulin Ratio 0.9 (1.0-1.7) Results All relevant outside records, renal labs, imaging studies, telemetry/EKG's were reviewed. VIRAJ SPENCER MD Jun 24, 2019 10:46
[2019-06-24 11:00] VITALS: BP 143/72
--- NOTE | 2019-06-24 12:03 | NUR ---
Pt discharged today at 1200. Pt left the unit with daughter via private vehicle. Pt stable at discharge.
--- NOTE | 2019-06-24 14:23 | DS ---
DATE OF DISCHARGE: 06/24/2019 ADMISSION DIAGNOSIS: Pyelonephritis. DISCHARGE DIAGNOSES: Resolving pyelonephritis, history of recent hysterectomy, and hypertension. CONSULTS: Dr. Mohan and Dr. Krueger. HOSPITAL COURSE: The patient is a pleasant middle-aged female, who presented with pyelonephritis. She was admitted. We gave her IV antibiotics and fluids. This morning, when I saw and examined her, she was up in the chair, smiling, want to go home. Her heart tones were normal. Lungs were clear. We plan to discharge. DISPOSITION: Home. ACTIVITY: As tolerated. DIET: Low sodium. MEDICATIONS: Please see the MRAD. TOTAL TIME: 34 minutes. ROSALINDA DAWSON DO DR: BIBIANA/jose JOB#: [id number] / [id number]
== END 2019-06-24 12:09 | disposition home or self-care (01) | DRG 690 ==
LOC: ER 11:30 → 2 SOUTH 13:31 → ER 14:30 → 5 SOUTH 06-23 17:46
PROVIDERS: ADMIT Internal Medicine; ATTEND Internal Medicine
DX: N12 Tubulo-interstitial nephritis, not specified as acute or chronic (principal); N17.0 Acute kidney failure with tubular necrosis; E86.0 Dehydration; E87.6 Hypokalemia; I10 Essential (primary) hypertension; Z82.49 Family history of ischemic heart disease and other diseases of the circulatory system; Z90.710 Acquired absence of both cervix and uterus; Z79.899 Other long term (current) drug therapy
CPT/HCPCS: 36415; 74176; 80048; 80053; 80307; 81001; 83605; 83690; 83735; 84100; 85007; 85025; 85651; 87086; J0696; J0780; J2270; J2405; J2543; J3010; J3490; J7030; G0378